=== PATIENT | male | born 1955 | race African-American/Black ===

== ENCOUNTER 2017-08-19 10:48 | Emergency (ER) | payer SELFPAY ==
--- NOTE | 2017-08-19 11:58 | RAD ---
PA AND LATERAL CHEST: Indication: Cough. Comparison: PA and lateral, 05-26-16 FINDINGS: The lungs are hyperinflated but clear. Vascular calcifications involving the aortic arch is similar. Cardiac silhouette is within normal limits. No acute osseous abnormality is evident. IMPRESSION: No acute cardiopulmonary abnormality. POS: [facility]
== END 2017-08-19 13:27 | disposition home or self-care (01) ==
LOC: ERS 10:48
DX: M54.5 Low back pain (principal); G89.29 Other chronic pain; J06.9 Acute upper respiratory infection, unspecified; F41.9 Anxiety disorder, unspecified; F32.9 Major depressive disorder, single episode, unspecified; Z87.891 Personal history of nicotine dependence
CPT/HCPCS: 71020

== ENCOUNTER 2017-10-17 12:09 | Emergency (ER) | payer SELFPAY ==
[2017-10-17] MEDS ORDERED: ISOVUE-370 76%-LOCM 1 ML ONE (13:26)
[2017-10-17] MEDS ORDERED: Ondansetron HCl/PF 4 MG/2 ML Vial ONE (13:52)
--- NOTE | 2017-10-17 15:35 | CT ---
CHEST CT SCAN WITH IV CONTRAST ABDOMEN AND PELVIC CT SCAN WITH IV CONTRAST: 10/17/17 HISTORY: 62-year-old male with history of trip and fall with left sided rib pain prior to admission. Dizziness . There is some bilateral hyperinflation and mild bullous emphysema changes. the mediastinum is unremar kable. No mediastinal hematoma. No evidence for aortic injury or aneurysm or dissection. No pneumotho rax or pleural effusion. There are some slight rib deformities bilaterally having more the appearance of old healed rib fractures, although the possibility of acute Greenstick type fractures with result ant mild deformity are considered possibilities as well. The left 10th anterior rib near the costocho ndral junction region has an associated linear lucency with probably a nondisplaced fracture. In the abdomen, liver, gallbladder, pancreas, spleen, and kidneys appear unremarkable. No renal hydro nephrosis. Normal appearing appendix. No significant free intraperitoneal fluid within the abdomen or pelvis. No evidence for retroperitoneal hematoma. IMPRESSION: Probable nondisplaced fracture involving the anterior left 10th rib near the costochondral junction. Several mild bilateral rib deformities having more the appearance of old fractures, although the poss ibility of acute nondisplaced Greenstick type fractures cannot be excluded. Minimal hyperinflation an d chronic lung change. No evidence for other significant acute posttraumatic process in the chest, ab domen or pelvis. POS: [facility]
== END 2017-10-17 15:03 | disposition home or self-care (01) ==
LOC: ERS 12:09
DX: S22.32XA Fracture of one rib, left side, initial encounter for closed fracture (principal); B20 Human immunodeficiency virus [HIV] disease; I10 Essential (primary) hypertension; F41.9 Anxiety disorder, unspecified; F32.9 Major depressive disorder, single episode, unspecified; W01.0XXA Fall on same level from slipping, tripping and stumbling without subsequent striking against object, initial encounter
CPT/HCPCS: 71260; 74177; 96374; 96375; J2270; J2405

== ENCOUNTER 2018-03-15 15:41 | Outpatient (CLI) | payer OTHER | END 2018-03-15 15:42 | disposition home or self-care (01) | LOC: BICRAD 15:41 | PROVIDERS: ATTEND Internal Medicine | DX: Z02.71 Encounter for disability determination (principal); M47.896 Other spondylosis, lumbar region; M16.0 Bilateral primary osteoarthritis of hip; I70.8 Atherosclerosis of other arteries | CPT/HCPCS: 72100 ==

== ENCOUNTER 2018-10-27 11:15 | Outpatient (CLI) | payer OTHER ==
--- NOTE | 2018-10-27 12:20 | RAD ---
PA AND LATERAL CHEST RADIOGRAPH: Date: 10-27-18 History: Cough for three weeks. Wheezing. Comparison: 04-27-18 FINDINGS: The lungs are hyperexpanded but clear. The cardiac silhouette and pulmonary vasculature are within normal limits. Osseous structures are int act. There has been no interval change from prior exam. IMPRESSION: 1. No acute cardiopulmonary process. 2. Stable hyperinflation of lungs. 3. Remote lower left sided rib fractures, stable from prior exam. POS: [facility]
== END 2018-10-27 11:16 | disposition home or self-care (01) ==
LOC: BICRAD 11:15
PROVIDERS: ATTEND Internal Medicine Infectious Disease
DX: R06.2 Wheezing (principal); R05 Cough; J98.11 Atelectasis; Z87.81 Personal history of (healed) traumatic fracture
CPT/HCPCS: 71046

== ENCOUNTER 2018-11-03 10:07 | Outpatient (CLI) | payer OTHER ==
--- NOTE | 2018-11-03 14:23 | MRI ---
MRI LUMBAR SPINE WITHOUT CONTRAST: Date: 11/03/18 COMPARISON: None. HISTORY: Low back pain. TECHNIQUE: Multiplanar, multisequence MR imaging of the lumbar spine is provided without contrast. FINDINGS: Mild heterogeneity of the bony marrow signal intensity is noted with no focal area of edematous churchill e noted on the STIR imaging. Assuming five lumbar-type vertebral bodies, conus medullaris terminates at the T12-L1 level. At T11-12, there is disc space narrowing, disc desiccation, and mild anterior osteophyte formation wi th no significant central canal or neural foraminal stenosis. T12-L1: Intervertebral disc height and signal intensity is within normal limits with no significant central canal or neural foraminal stenosis. L1-2: Intervertebral disc height and signal intensity within normal limits no significant central ca nal or neural foraminal stenosis. L2-3: Mild disc space narrowing and minimal disc bulge. Mild bilateral facet hypertrophy. No signifi cant central canal or neural foraminal stenosis. L3-4: Mild bilateral facet hypertrophy. Intervertebral disc height and signal intensity within barbara l limits with no significant central canal or neural foraminal stenosis. L4-5: There is mild bilateral facet hypertrophy. Intervertebral disc height and signal intensity is within normal limits with no significant central canal or neural foraminal stenosis. L5-S1: Disc space narrowing, disc desiccation, and mild disc bulge present. Mild central canal steno sis. No significant neural foraminal stenosis. Incidental note is made of a 5-6 mm hypointense focus within the gallbladder. Imaged retroperitoneal structures demonstrate no acute findings. IMPRESSION: 1. No significant central canal or neural foraminal stenosis within the lumbar spine. 2. Probable cholelithiasis, which could be better assessed via right upper quadrant ultrasound. Gall bladder polyp is an alternative consideration. POS: [facility]
== END 2018-11-03 10:08 | disposition home or self-care (01) ==
LOC: TBSIIMAG 10:07
PROVIDERS: ATTEND Neurological Surgery
DX: M47.16 Other spondylosis with myelopathy, lumbar region (principal); M54.5 Low back pain
CPT/HCPCS: 72148

== ENCOUNTER 2019-03-20 13:37 | Emergency (ER) | payer MEDICARE, OTHER ==
[~2019-03-20 13:37] MED LIST: ISOVUE-370 76%-LOCM 1 ML ONE
[2019-03-20 14:14] LABS: #Basophils 0.1 thou/uL (0.0-0.2); #Eosinphils 0.1 thou/uL (0.0-0.7); #Lymphocytes 1.6 thou/uL (1.20-3.40); #Monocytes 0.7 thou/uL (0.11-0.59); #Neutrophils 5.4 thou/uL (1.40-6.50); %Basophils 0.7 % (0.0-1.0); %Eosinophils 1.6 % (0.0-10.0); %Lymphocytes 20.2 % (21.0-51.0); %Monocytes 8.4 % (0.0-10.0); %Neutrophils 69.1 % (42.0-75.0); Hemoglobin 14.8 g/dL (14.0-18.0); Mean Corpuscular Hemoglobin 37.7 pg (27.0-31.0); Mean Platelet Volume 8.2 fL (7.4-10.4); Platelet Count 215 thou/uL (130-400); RBC Distribution Width 11.2 % (11.5-14.5); Red Blood Cell (RBC) Count 3.93 mill/uL (4.70-6.10); White Blood Cell (WBC) Count 7.7 thou/uL (4.8-10.8)
[2019-03-20 14:27] LABS: MDiff Complete? YES; Macrocytosis SLIGHT = 6-15 cells (100X) (0-5/hpf); Platelet Morphology Comment Appears Adequate
--- NOTE | 2019-03-20 14:38 | RAD ---
RADIOGRAPH CHEST 1 VIEW: DATE: 03/20/2019 HISTORY: 64-year-old male with chest pain FINDINGS: There is hyperinflation of the lungs, consistent with COPD. The thoracic aorta is tortuous and ectati c. There is no evidence of airspace density, pulmonary edema, cardiomegaly or pneumothorax. The lateral costophrenic angles are not effaced. IMPRESSION: 1) No acute cardiopulmonary findings. 2) emphysema. 3) ectasia of thoracic aorta.
[2019-03-20 14:41] LABS: ALT (SGPT) 24 U/L (8-55); AST (SGOT) 27 U/L (5-34); Albumin 4.4 g/dL (3.4-4.8); Alkaline Phosphatase 43 U/L (40-150); Anion Gap 12 mmol/L (10-20); BUN (Urea Nitrogen) 7 mg/dL (8.4-25.7); Bilirubin, Total 1.4 mg/dL (0.2-1.2); CK (CPK) 132 U/L (30-200); Calc. Creatinine Clearance 0 mL/min (70-130); Calcium 9.3 mg/dL (7.8-10.44); Carbon Dioxide 25 mmol/L (23-31); Chloride 101 mmol/L (98-107); Estimated GFR-MDRD 74; Globulin 3.4 g/dL (2.4-3.5); Glucose 88 mg/dL (80-115); Lipase 12 U/L (8-78); Potassium 4.1 mmol/L (3.5-5.1); Protein, Total 7.8 g/dL (5.8-8.1); Sodium 134 mmol/L (136-145)
[2019-03-20] MEDS ORDERED: Morphine 4 MG/ML VIAL ONE (16:05)
[2019-03-20] MEDS ORDERED: Ondansetron PF 4 MG/2 ML Vial ONE (16:05)
--- NOTE | 2019-03-20 16:56 | CT ---
Exam: CT angiogram of the thoracic aorta CT angiogram of the abdominal aorta History: Worsening back pain. Evaluate for dissection. COMPARISON: None TECHNIQUE: CT angiogram of the thoracic and abdominal aorta performed in the axial plane. Three-dimen sional reformatted images are submitted for interpretation. FINDINGS: Chest CT: No mediastinal mass, lymphadenopathy or hematoma. Heart size is within normal limits. There are coronary calcifications. Extensive emphysematous changes involving the lung parenchyma, greatest in both upper lobes. No suspi cious masses or consolidation in either lung. No pleural effusion. Pneumothorax. Abdomen CT: Appropriate arterial phase enhancement of the solid organs. No gastrohepatic, retrocrural or periportal lymphadenopathy. No mesenteric mass, lymphadenopathy, hermila e air or free fluid. Symmetric enhancement of the kidneys. No obstructive uropathy. Visualized alimentary canal is unremarkable. Incidental upper normal caliber of the pancreatic duct measuring approximately 2 to 3 mm. Unremarkabl e gallbladder. No lytic or blastic lesions in the osseous structures. CT ANGIOGRAM: The aortic root, ascending thoracic aorta, aortic arch, descending thoracic aorta, abdo tatianna aorta and aortic bifurcation have appropriate enhancement and luminal diameter. There is appropriate enhancement and luminal diameter with regards to the origin of the cervical carotid and v ertebral arteries as well as proximal subclavian arteries. There is appropriate enhancement and luminal diameter with regards to the celiac artery, superior mesenteric artery, inferior mesenteric a rtery and bilateral renal arteries. Single right renal artery and single left renal artery. Aortic bifurcation and visualized iliac arteries are under IMPRESSION: 1. No evidence of aneurysm or dissection with regards to the visualized thoracic and abdominal aorta. 2. Emphysematous changes of the lung parenchyma without suspicious masses or consolidation. Transcribed Date/Time: 03/20/2019 5:09 PM
[2019-03-20 19:04] LABS: Troponin I Less than 0.010 ng/mL (< 0.028)
== END 2019-03-20 19:30 | disposition home or self-care (01) ==
LOC: ERS 13:37
DX: M54.6 Pain in thoracic spine (principal)
CPT/HCPCS: 36415; 71045; 71275; 80053; 82550; 83690; 84484; 85025; 93005; 94760; 96361; 96374; 96375; J2270; J2405; Q9966

== ENCOUNTER 2019-04-26 10:55 | Outpatient (CLI) | payer MEDICARE, OTHER ==
--- NOTE | 2019-04-26 11:09 | RAD ---
EXAM: Chest 2 views: HISTORY: Cough COMPARISON: 10/27/2018 FINDINGS: There is a normal-sized cardiomediastinal silhouette. There is no evidence of consolidation, mass, or pleural effusion. The bones are unremarkable. IMPRESSION: No evidence of acute cardiopulmonary disease
== END 2019-04-26 10:56 | disposition home or self-care (01) ==
LOC: BICRAD 10:55
PROVIDERS: ATTEND Internal Medicine Infectious Disease
DX: R05 Cough (principal)
CPT/HCPCS: 71046

== ENCOUNTER 2020-01-09 15:53 | Emergency (ER) | payer MEDICARE, OTHER ==
[2020-01-09] MEDS ORDERED: Ketorolac Tromethamine 30 MG/ML VIAL ONE ×2 (16:49→16:53)
[2020-01-09] MEDS ORDERED: Dexamethasone 4 mg/ml Vial ONE (16:49)
--- NOTE | 2020-01-09 17:45 | RAD ---
LUMBAR SPINE RADIOGRAPHS THREE VIEWS: Date: 01-09-2020 Provided Clinical History: Chronic back pain. FINDINGS: Comparison 11-12-04. Five non-rib bearing lumbar vertebral bodies are demonstrated. Lumbar alignment appears normal. Verte bral body heights appear preserved. Pedicles appear intact. Sacral iliac joints appear symmetric. Vas cular calcifications are seen. Mild lower lumbar facet arthritis. IMPRESSION: Mild lower lumbar facet arthritis. POS: [facility]
== END 2020-01-09 18:05 | disposition home or self-care (01) ==
LOC: ERS 15:53
DX: M54.5 Low back pain (principal); G89.29 Other chronic pain; E78.5 Hyperlipidemia, unspecified; I10 Essential (primary) hypertension; J45.909 Unspecified asthma, uncomplicated; B20 Human immunodeficiency virus [HIV] disease
CPT/HCPCS: 72100; 96372; J1100; J1885

== ENCOUNTER 2020-08-21 15:21 | Outpatient (CLI) | payer MEDICARE, OTHER ==
--- NOTE | 2020-08-21 15:54 | ULT ---
ULTRASOUND ABDOMEN COMPLETE: DATE: 08/21/2020 HISTORY: 65-year-old male for screening for abdominal aortic aneurysm. FINDINGS: Gallbladder: Single small 6 mm mobile gallstone. Normal wall thickness. No sludge identified. No carolann cholecystic fluid. Liver: Normal parenchymal echogenicity. Bilateral kidneys: No hydronephrosis. Pancreas: Nonspecific sonographic appearance. Common duct caliber: 3 mm. Abdominal aorta: No aneurysm Inferior vena cava: Unremarkable where visualized. Spleen: No splenomegaly IMPRESSION: 1. Cholelithiasis consisting of a single small mobile gallstone. 2. Otherwise negative.
== END 2020-08-21 15:22 | disposition home or self-care (01) ==
LOC: BICULT 15:21
PROVIDERS: ATTEND Student in an Organized Health Care Education/Training Program
DX: Z87.891 Personal history of nicotine dependence (principal); K80.20 Calculus of gallbladder without cholecystitis without obstruction
CPT/HCPCS: 93975

== ENCOUNTER 2020-11-22 11:38 | Observation (INO) | payer MEDICARE, MEDICAID ==
[~2020-11-22 11:38] MED LIST changes: -ISOVUE-370 76%-LOCM 1 ML ONE; +Iopamidol 370 76% 100 ML VIAL ONE
[2020-11-22 12:13] LABS: #Basophils 0.1 thou/uL (0.0-0.2); #Eosinphils 0.1 thou/uL (0.0-0.7); #Lymphocytes 1.1 thou/uL (1.20-3.40); #Monocytes 0.6 thou/uL (0.11-0.59); #Neutrophils 8.3 thou/uL (1.40-6.50); %Basophils 0.8 % (0.0-1.0); %Eosinophils 0.5 % (0.0-10.0); %Lymphocytes 10.5 % (21.0-51.0); %Monocytes 5.4 % (0.0-10.0); %Neutrophils 82.8 % (42.0-75.0); Hemoglobin 14.5 g/dL (14.0-18.0); Mean Corpuscular HGB CONC 33.6 g/dL (32.0-36.0); Mean Platelet Volume 8.6 fL (7.4-10.4); Platelet Count 183 thou/uL (130-400); RBC Distribution Width 11.2 % (11.5-14.5); Red Blood Cell (RBC) Count 3.83 mill/uL (4.70-6.10); White Blood Cell (WBC) Count 10.1 thou/uL (4.8-10.8)
[2020-11-22 12:33] LABS: ALT (SGPT) 35 U/L (8-55); AST (SGOT) 42 U/L (5-34); Albumin 3.9 g/dL (3.4-4.8); Alkaline Phosphatase 54 U/L (40-110); Anion Gap 15 mmol/L (10-20); BUN (Urea Nitrogen) 13 mg/dL (8.4-25.7); Bilirubin, Total 0.9 mg/dL (0.2-1.2); Calc. Creatinine Clearance 0 mL/min (70-130); Carbon Dioxide 22 mmol/L (23-31); Chloride 101 mmol/L (98-107); Globulin 3.7 g/dL (2.4-3.5); Glucose 119 mg/dL (80-115); Lipase 19 U/L (8-78); Potassium 4.3 mmol/L (3.5-5.1); Protein, Total 7.6 g/dL (5.8-8.1); Sodium 134 mmol/L (136-145)
[2020-11-22 12:39] LABS: MDiff Complete? YES; Macrocytosis SLIGHT = 6-15 cells (100X) (0-5/hpf); Platelet Morphology Comment Appears Adequate; Polychromasia SLIGHT = 2-3 cells (100X) (0-2/hpf)
[2020-11-22] MEDS ORDERED: Ibuprofen 600 MG TAB PO PRN (15:16)
[2020-11-22 15:38] LABS: Troponin I 0.014 ng/mL (< 0.028)
[2020-11-22] MEDS ORDERED: Lactated Ringer's 1,000 ML IV SCH (15:45)
[2020-11-22 16:02] LABS: Hemoglobin A1c 4.3 % (4.0-6.0)
[2020-11-22 16:14] LABS: Cardiac Risk 2.3 (Less than 4.5)
[2020-11-22 17:31] LABS: SARS-CoV-2 NAA Rapid Test Not Detected (NotDetected)
[2020-11-22] MEDS ORDERED: Ipratropium Oral Inhaler INH PRN (17:34)
[2020-11-22] MEDS ORDERED: Morphine 2 MG/ML VIAL SLOW IVP PRN (17:41)
[2020-11-22] MEDS: Acetaminophen 325 MG TAB PO PRN (17:46)
[2020-11-22] MEDS: Cyclobenzaprine 10 MG TAB PO PRN ×2 (17:48→20:31)
[2020-11-22 19:02] LABS: Troponin I 0.015 ng/mL (< 0.028)
[2020-11-22 19:17] VITALS: BMI 19.2
[2020-11-22 19:47] LABS: Amphetamine Not Detected (NotDetected); Barbiturates Screen Not Detected (NotDetected); Benzodiazepine Screen Not Detected (NotDetected); Cocaine Metabolite Screen Not Detected (NotDetected); Medtox Control Line Valid? VALID (VALID); Medtox Reader # READER 1; Methadone Not Detected (NotDetected); Methamphetamine Not Detected (NotDetected); Opiate Screen Not Detected (NotDetected); Oxycodone Screen Not Detected (NotDetected); Phencyclidine (PCP) Not Detected (NotDetected); THC/Cannabinoid Screen Not Detected (NotDetected); Tricyclic Screen Not Detected (NotDetected)
[2020-11-22] MEDS: Lactated Ringer's 1,000 ML IV SCH (20:07)
[2020-11-22] MEDS ORDERED: Transdermal Patch Removal TOP SCH (21:00)
[2020-11-22] MEDS ORDERED: Atorvastatin Calcium 40 MG TAB PO SCH (21:00)
[2020-11-23] MEDS: Lactated Ringer's 1,000 ML IV SCH ×3 (05:35→12:52)
[2020-11-23] MEDS ORDERED: Lidocaine 5% Patch TD SCH (09:00)
[2020-11-23] MEDS ORDERED: Aspirin 81 mg Enteric Coated Tablet PO SCH (09:00)
[2020-11-23] MEDS ORDERED: Enoxaparin Sodium 40 MG/0.4 ML SYRINGE SC SCH (09:00)
[2020-11-23] MEDS ORDERED: FLU VACC QS2020-21(65YR UP)/PF 240 MCG/0.7 ML SYRINGE IM ONE (09:00)
[2020-11-23] MEDS ORDERED: Regadenoson 0.4 MG/5 ML SYRINGE ONE (10:38)
[2020-11-23] MEDS: Acetaminophen 325 MG TAB PO PRN (10:57)
[2020-11-23] MEDS: Cyclobenzaprine 10 MG TAB PO PRN (12:20)
[2020-11-23 15:14] VITALS: BP 151/94; TEMP 98
[2020-11-23 16:14] LABS: %CD4 (Helper/Inducer) 54.6 % (30.8-58.5); Absolute CD4 601 /uL (359-1519); Lymphocytes/Gated Cell Count 1.1 x10E3/uL (0.7-3.1); Total Lymphocyte 13 % (Not Estab.); WBC Total Count 8.7 x10E3/uL (3.4-10.8)
== END 2020-11-23 17:55 | disposition left against medical advice (07) ==
LOC: ERS 11:38 → 2SW 14:18
PROVIDERS: ADMIT Family Medicine; ATTEND Family Medicine
DX: R07.89 Other chest pain (principal); M54.5 Low back pain; I10 Essential (primary) hypertension; E78.5 Hyperlipidemia, unspecified; I69.354 Hemiplegia and hemiparesis following cerebral infarction affecting left non-dominant side; K80.20 Calculus of gallbladder without cholecystitis without obstruction; E86.0 Dehydration; Z53.29 Procedure and treatment not carried out because of patient's decision for other reasons; Z21 Asymptomatic human immunodeficiency virus [HIV] infection status; Z87.891 Personal history of nicotine dependence; Z23 Encounter for immunization; Z79.899 Other long term (current) drug therapy; Z20.822 Contact with and (suspected) exposure to COVID-19
CPT/HCPCS: 0240U; 71045; 71275; 78452; 80061; 80306; 83036; 83690; 84484 ×2; 85048; 85379; 86361; 90662; 90732; 93005; 93017; 93306; 94760; 96372; 96374; 97139 ×4; 99285; A9500; G0008; G0009; G0378 ×3; J2270; 36415; 36416; 80053; 84443; 85025; 90471; J1650; J2785; Q9967

== ENCOUNTER 2021-06-27 13:01 | Outpatient (CLI) | payer MEDICARE, MEDICAID | END 2021-06-27 13:02 | disposition home or self-care (01) | LOC: BICRAD 13:01 | PROVIDERS: ATTEND Nurse Practitioner Family | DX: R06.02 Shortness of breath (principal); B20 Human immunodeficiency virus [HIV] disease | CPT/HCPCS: 71046 ==

== ENCOUNTER 2021-07-16 07:37 | Emergency (ER) | payer MEDICARE, MEDICAID ==
[2021-07-16] MEDS ORDERED: Morphine 4 MG/ML VIAL ONE (08:29)
[2021-07-16] MEDS ORDERED: Ondansetron PF 4 MG/2 ML Vial ONE (08:29)
[2021-07-16 09:06] LABS: ALT (SGPT) 34 U/L (8-55); AST (SGOT) 40 U/L (5-34); Albumin 4.2 g/dL (3.4-4.8); Alkaline Phosphatase 61 U/L (40-110); Anion Gap 15 mmol/L (10-20); BUN (Urea Nitrogen) 10 mg/dL (8.4-25.7); Bilirubin, Total 0.7 mg/dL (0.2-1.2); Calc. Creatinine Clearance 0 mL/min (70-130); Calcium 9.8 mg/dL (7.8-10.44); Carbon Dioxide 23 mmol/L (23-31); Chloride 102 mmol/L (98-107); Globulin 4.1 g/dL (2.4-3.5); Glucose 104 mg/dL (80-115); Lipase 20 U/L (8-78); Potassium 4.6 mmol/L (3.5-5.1); Protein, Total 8.3 g/dL (5.8-8.1); Sodium 135 mmol/L (136-145)
[2021-07-16 09:08] LABS: #Eosinphils 0.1 thou/uL (0.0-0.7); #Lymphocytes 1.1 thou/uL (1.20-3.40); #Monocytes 0.8 thou/uL (0.11-0.59); #Neutrophils 5.7 thou/uL (1.40-6.50); %Basophils 0.1 % (0.0-1.0); %Eosinophils 1.6 % (0.0-10.0); %Lymphocytes 14.6 % (21.0-51.0); %Monocytes 10.3 % (0.0-10.0); %Neutrophils 73.4 % (42.0-75.0); Hemoglobin 15.8 g/dL (14.0-18.0); Mean Corpuscular HGB CONC 33.2 g/dL (32.0-36.0); Mean Corpuscular Hemoglobin 37.4 pg (27.0-31.0); Mean Platelet Volume 8.9 fL (7.4-10.4); Platelet Count 182 thou/uL (130-400); RBC Distribution Width 11.1 % (11.5-14.5); Red Blood Cell (RBC) Count 4.21 mill/uL (4.70-6.10); White Blood Cell (WBC) Count 7.8 thou/uL (4.8-10.8)
[2021-07-16 09:28] LABS: MDiff Complete? YES; Macrocytosis MODERATE=16-30 cells (100X) (0-5/hpf); Platelet Morphology Comment Appears Adequate; Polychromasia SLIGHT = 2-3 cells (100X) (0-2/hpf)
[2021-07-16] MEDS ORDERED: Iopamidol-370 76% 500 ML 1 ML ONE (10:27)
== END 2021-07-16 10:16 | disposition home or self-care (01) ==
LOC: ERS 07:37
DX: S30.1XXA Contusion of abdominal wall, initial encounter (principal); M25.559 Pain in unspecified hip; E78.5 Hyperlipidemia, unspecified; I10 Essential (primary) hypertension; J45.909 Unspecified asthma, uncomplicated; W19.XXXA Unspecified fall, initial encounter
CPT/HCPCS: 36415; 74177; 80053; 83690; 85025; 86850; 86900; 86901; 96374; 96375; J2270; J2405; Q9967

== ENCOUNTER 2021-09-18 13:29 | Outpatient (CLI) | payer MEDICARE, MEDICAID | END 2021-09-18 13:30 | disposition home or self-care (01) | LOC: BICMRI 13:29 | PROVIDERS: ATTEND Student in an Organized Health Care Education/Training Program | DX: M54.50 Low back pain, unspecified (principal); M54.6 Pain in thoracic spine; M51.26 Other intervertebral disc displacement, lumbar region; M48.061 Spinal stenosis, lumbar region without neurogenic claudication; M47.814 Spondylosis without myelopathy or radiculopathy, thoracic region | CPT/HCPCS: 72146; 72148 ==

== ENCOUNTER 2021-09-27 10:08 | Outpatient (CLI) | payer MEDICARE, MEDICAID ==
[2021-09-27 12:06] LABS: #Basophils 0.1 10x3/uL (0.0-0.2); #Eosinphils 0.1 10x3/uL (0.0-0.5); #Monocytes 0.8 10x3/uL (0.0-1.1); #Neutrophils 6.2 10x3/uL (1.5-8.4); %Basophils 0.6 % (0.0-2.0); %Eosinophils 1.4 % (0.0-6.0); %Lymphocytes 18.1 % (18.0-47.0); %Monocytes 8.7 % (0.0-10.0); Anisocytosis SLIGHT = 6-15 cells (100X) (0-5/hpf); Hemoglobin 15.2 g/dL (13.5-17.5); Macrocytosis MODERATE=16-30 cells (100X) (0-5/hpf); Mean Corpuscular HGB CONC 33.3 g/dL (32.0-36.0); Mean Corpuscular Hemoglobin 36.1 pg (27.0-33.0); Mean Corpuscular Volume 108.6 fl (81.2-95.1); Mean Platelet Volume 11.5 fl (7.4-10.4); Platelet Count 198 10x3/uL (150-450); RBC Distribution Width 11.1 % (11.5-14.5); Red Blood Cell (RBC) Count 4.21 10x6/uL (4.32-5.72); White Blood Cell (WBC) Count 8.8 10x3/uL (3.5-10.5)
[2021-09-27 12:07] LABS: Large Platelets MODERATE; Platelet Clumps SLIGHT; Platelet Morphology Comment Appears Adequate
[2021-09-27 12:14] LABS: ALT (SGPT) 56 U/L (8-55); AST (SGOT) 53 U/L (5-34); Albumin 4.3 g/dL (3.4-4.8); Alkaline Phosphatase 70 U/L (40-110); Anion Gap 18 mmol/L (10-20); BUN (Urea Nitrogen) 9 mg/dL (8.4-25.7); Bilirubin, Total 1.3 mg/dL (0.2-1.2); Calc. Creatinine Clearance 0 mL/min (70-130); Calcium 9.5 mg/dL (7.8-10.44); Carbon Dioxide 26 mmol/L (23-31); Chloride 99 mmol/L (98-107); Globulin 3.8 g/dL (2.4-3.5); Glucose 86 mg/dL (80-115); Potassium 4.5 mmol/L (3.5-5.1); Protein, Total 8.1 g/dL (5.8-8.1); Sodium 138 mmol/L (136-145)
[2021-09-28 12:54] LABS: SARS-CoV-2 PCR by NAA Not Detected (NotDetected)
== END 2021-09-27 10:09 | disposition home or self-care (01) ==
LOC: LABBT 10:08
PROVIDERS: ATTEND Internal Medicine Cardiovascular Disease
DX: Z01.812 Encounter for preprocedural laboratory examination (principal); R07.9 Chest pain, unspecified; Z20.822 Contact with and (suspected) exposure to COVID-19
CPT/HCPCS: 80053; 85025; U0003; U0005

== ENCOUNTER 2022-09-10 11:15 | Outpatient (CLI) | payer MEDICARE, OTHER | END 2022-09-10 11:16 | disposition home or self-care (01) | LOC: BICRAD 11:15 | PROVIDERS: ATTEND Student in an Organized Health Care Education/Training Program | DX: J44.9 Chronic obstructive pulmonary disease, unspecified (principal) | CPT/HCPCS: 71046 ==

== ENCOUNTER 2022-12-31 08:41 | Outpatient (CLI) | payer OTHER | END 2022-12-31 08:42 | disposition home or self-care (01) | LOC: RAD 08:41 | PROVIDERS: ATTEND Internal Medicine Critical Care Medicine | DX: R06.00 Dyspnea, unspecified (principal) | CPT/HCPCS: 71046 ==

== ENCOUNTER 2023-03-21 03:26 | Inpatient (IN) | payer OTHER, MEDICAID ==
[2023-03-21] MEDS ORDERED: Albuterol 2.5 MG/0.5 ML NEB ONE (03:35)
[2023-03-21 03:52] LABS: Actual Bicarbonate (HCO3a) 25.9 mEq/L (22-28); Base Excess (BEa) -0.6 mEq/L (-2.0 to +3.0); CO2 Tension 50.2 mmHg (35.0-45.0); Calcium, Ionized (arterial) 1.15 mmol/L (1.12-1.30); Carboxyhemoglobin (COHb) 1.2 gm% (0.0-3.0); Hematocrit-ABG 38 % (42.0-52.0); O2 Tension (PaO2), arterial 144.2 mmHg (> 80.0); pH, Arterial 7.331 (7.35-7.45)
[2023-03-21 03:53] LABS: Puncture Site RRA
[2023-03-21 03:55] LABS: Hemoglobin 12.5 g/dL (14.0-18.0); Mean Corpuscular HGB CONC 33.4 g/dL (32.0-36.0); Mean Corpuscular Hemoglobin 37.3 pg (27.0-31.0); Mean Corpuscular Volume 111.6 fl (78.0-98.0); Mean Platelet Volume 10.9 fL (7.4-10.4); Platelet Count 179 10x3/uL (130-400); RBC Distribution Width 11.7 % (11.5-14.5); Red Blood Cell (RBC) Count 3.35 mill/uL (4.70-6.10); White Blood Cell (WBC) Count 17.1 10x3/uL (4.8-10.8)
[2023-03-21 04:00] LABS: Delete Auto Diff?? YES; Manual Diff?? YES
[2023-03-21 04:20] LABS: ALT (SGPT) 23 U/L (8-55); AST (SGOT) 41 U/L (5-34); Albumin 4.1 g/dL (3.4-4.8); Alkaline Phosphatase 53 U/L (40-110); Anion Gap 13 mmol/L (10-20); BUN (Urea Nitrogen) 12 mg/dL (8.4-25.7); Bilirubin, Total 0.8 mg/dL (0.2-1.2); Calc. Creatinine Clearance 0 mL/min (70-130); Calcium 8.9 mg/dL (7.8-10.44); Carbon Dioxide 26 mmol/L (23-31); Chloride 100 mmol/L (98-107); Estimated GFR 87; Globulin 3.3 g/dL (2.4-3.5); Glucose 125 mg/dL (80-115); Potassium 4.5 mmol/L (3.5-5.1); Protein, Total 7.4 g/dL (5.8-8.1); Sodium 134 mmol/L (136-145)
[2023-03-21 04:26] LABS: Anisocytosis SLIGHT = 6-15 cells HPF (0-5); CellaVision Operator ID LAB.CLH1; Lymphocytes 11 % (21-51); Macrocytosis SLIGHT = 6-15 cells HPF (0-5); Monocytes 3 % (0-10); Neutrophil 86 % (42-75); Platelet Adequacy Comment Platelets Normal; Total Cell Count 101
[2023-03-21] MEDS ORDERED: Piperacillin/Tazobactam 3.375 GM VIAL ONE (04:49)
[2023-03-21] MEDS ORDERED: Ipratropium/Albuterol 3 ML NEB NEB PRN (06:45)
[2023-03-21] MEDS: Ipratropium/Albuterol 3 ML NEB NEB SCH ×5 (08:35→22:58)
[2023-03-21] MEDS ORDERED: Electrolyte Replacement Protocol 1 EACH FS SCH (10:45)
[2023-03-21] MEDS ORDERED: Azithromycin 250 MG TAB PO SCH (11:00)
[2023-03-21] MEDS ORDERED: Electrolyte Replacement Protocol FS PRN (11:30)
[2023-03-21] MEDS ORDERED: Magnesium Sulfate In Water 4 GM in Premix Bag 1 BAG IVPB SCH (12:00)
[2023-03-21] MEDS ORDERED: Furosemide 20 MG/2 ML VIAL SLOW IVP SCH (12:15)
[2023-03-21] MEDS: methylPREDNISolone Sod Succ 40 MG VIAL IVP SCH ×3 (12:41→23:53)
[2023-03-21] MEDS: Ipratropium Bromide 2.5 ml Neb NEB SCH ×2 (13:22→18:28)
[2023-03-21] MEDS: Gabapentin 300 MG CAP PO SCH ×2 (15:44→20:17)
[2023-03-21] MEDS ORDERED: BIKTARVY 50-200-25 MG TABLET PO SCH (17:00)
[2023-03-21] MEDS: Guaifenesin DM 100-10/5 ML UDCUP PO PRN (18:49)
[2023-03-21] MEDS: Atorvastatin Calcium 40 MG TAB PO SCH (20:17)
[2023-03-22] MEDS: Ipratropium/Albuterol 3 ML NEB NEB SCH ×6 (02:05→23:17)
[2023-03-22] MEDS: Ipratropium Bromide 2.5 ml Neb NEB SCH ×3 (02:06→10:30)
[2023-03-22 04:20] LABS: #Monocytes 0.4 thou/uL (0.11-0.59); #Neutrophils 10.3 thou/uL (1.40-6.50); %Lymphocytes 4.3 % (21.0-51.0); %Monocytes 3.7 % (0.0-10.0); %Neutrophils 91.4 % (42.0-75.0); Hemoglobin 11.5 g/dL (14.0-18.0); Mean Corpuscular HGB CONC 33.7 g/dL (32.0-36.0); Mean Corpuscular Hemoglobin 37.6 pg (27.0-31.0); Platelet Count 142 10x3/uL (130-400); RBC Distribution Width 11.5 % (11.5-14.5); Red Blood Cell (RBC) Count 3.06 mill/uL (4.70-6.10); White Blood Cell (WBC) Count 11.3 10x3/uL (4.8-10.8)
[2023-03-22 04:27] LABS: Mean Corpuscular Volume 111.4 fl (78.0-98.0)
[2023-03-22 04:43] LABS: Anion Gap 12 mmol/L (10-20); BUN (Urea Nitrogen) 11 mg/dL (8.4-25.7); Calc. Creatinine Clearance 78 mL/min (70-130); Calcium 8.7 mg/dL (7.8-10.44); Carbon Dioxide 26 mmol/L (23-31); Chloride 102 mmol/L (98-107); Estimated GFR 92; Glucose 143 mg/dL (80-115); Potassium 4.3 mmol/L (3.5-5.1); Sodium 136 mmol/L (136-145)
[2023-03-22] MEDS: methylPREDNISolone Sod Succ 40 MG VIAL IVP SCH ×4 (05:46→23:38)
[2023-03-22] MEDS: Folic Acid 1 MG TAB PO SCH (07:51)
[2023-03-22] MEDS: Azithromycin 250 MG TAB PO SCH (07:51)
[2023-03-22] MEDS: Gabapentin 300 MG CAP PO SCH ×3 (07:51→20:16)
[2023-03-22] MEDS: BIKTARVY 50-200-25 MG TABLET PO SCH (07:51)
[2023-03-22] MEDS: Multivit, Therapeutic 1 TAB PO SCH (07:51)
[2023-03-22] MEDS ORDERED: predniSONE 20 MG TAB PO SCH (08:00)
[2023-03-22] MEDS ORDERED: Sacubitril 24MG/Valsartan 26 MG TAB PO SCH (09:00)
[2023-03-22] MEDS ORDERED: Docusate 100 MG CAP PO PRN (13:13)
[2023-03-22] MEDS: Acetaminophen 325 MG TAB PO PRN (17:25)
[2023-03-22] MEDS: Sacubitril 24MG/Valsartan 26 MG TAB PO SCH (20:16)
[2023-03-22] MEDS: Atorvastatin Calcium 40 MG TAB PO SCH (20:16)
[2023-03-23] MEDS: Ipratropium/Albuterol 3 ML NEB NEB SCH ×6 (02:28→22:29)
[2023-03-23] MEDS: methylPREDNISolone Sod Succ 40 MG VIAL IVP SCH ×4 (05:53→23:41)
[2023-03-23 08:18] LABS: Hemoglobin 12.8 g/dL (14.0-18.0); Mean Corpuscular Hemoglobin 37.8 pg (27.0-31.0); Mean Corpuscular Volume 114.5 fl (78.0-98.0); Mean Platelet Volume 11.2 fL (7.4-10.4); Platelet Count 164 10x3/uL (130-400); RBC Distribution Width 11.4 % (11.5-14.5); Red Blood Cell (RBC) Count 3.39 mill/uL (4.70-6.10); White Blood Cell (WBC) Count 13.7 10x3/uL (4.8-10.8)
[2023-03-23 08:23] LABS: Delete Auto Diff?? YES; Manual Diff?? YES
[2023-03-23 08:42] LABS: CellaVision Operator ID LAB.GE; Hypersegmented Neutrophil SLIGHT (None Seen); Large Platelets 6.9 % (0-5); Lymphocytes 3 % (21-51); Macrocytosis MODERATE=16-30 cells HPF (0-5); Monocytes 2 % (0-10); Neutrophil 94 % (42-75); Platelet Adequacy Comment Platelets Normal; Polychromasia SLIGHT = 2-3 cells HPF (0-2); Reactive Lymphocytes 1 % (0-10); Total Cell Count 101
[2023-03-23 08:47] LABS: Anion Gap 15 mmol/L (10-20); BUN (Urea Nitrogen) 14 mg/dL (8.4-25.7); Calc. Creatinine Clearance 65 mL/min (70-130); Calcium 9.1 mg/dL (7.8-10.44); Carbon Dioxide 23 mmol/L (23-31); Chloride 102 mmol/L (98-107); Estimated GFR 76; Glucose 141 mg/dL (80-115); Potassium 4.4 mmol/L (3.5-5.1); Sodium 136 mmol/L (136-145)
[2023-03-23] MEDS: Azithromycin 250 MG TAB PO SCH (08:50)
[2023-03-23] MEDS: Sacubitril 24MG/Valsartan 26 MG TAB PO SCH ×2 (08:50→20:32)
[2023-03-23] MEDS: Multivit, Therapeutic 1 TAB PO SCH (08:50)
[2023-03-23] MEDS: Gabapentin 300 MG CAP PO SCH ×3 (08:50→20:32)
[2023-03-23] MEDS: Folic Acid 1 MG TAB PO SCH (08:51)
[2023-03-23] MEDS: Acetaminophen 325 MG TAB PO PRN ×3 (08:51→20:36)
[2023-03-23] MEDS: BIKTARVY 50-200-25 MG TABLET PO SCH (08:55)
[2023-03-23 12:15] VITALS: BMI 20.3
[2023-03-23] MEDS: Atorvastatin Calcium 40 MG TAB PO SCH (20:32)
[2023-03-24] MEDS: Guaifenesin DM 100-10/5 ML UDCUP PO PRN (00:55)
[2023-03-24 01:18] VITALS: TEMP 97.9
[2023-03-24] MEDS: Ipratropium/Albuterol 3 ML NEB NEB SCH ×3 (02:03→12:25)
[2023-03-24 06:49] LABS: #Neutrophils 10.9 thou/uL (1.40-6.50); %Basophils 0.1 % (0.0-1.0); %Monocytes 7.7 % (0.0-10.0); %Neutrophils 81.6 % (42.0-75.0); Hemoglobin 12.8 g/dL (14.0-18.0); Mean Corpuscular HGB CONC 33.8 g/dL (32.0-36.0); Mean Corpuscular Hemoglobin 37.2 pg (27.0-31.0); Mean Platelet Volume 10.9 fL (7.4-10.4); Platelet Count 175 10x3/uL (130-400); RBC Distribution Width 11.2 % (11.5-14.5); Red Blood Cell (RBC) Count 3.44 mill/uL (4.70-6.10); White Blood Cell (WBC) Count 13.3 10x3/uL (4.8-10.8)
[2023-03-24 07:18] LABS: Anion Gap 11 mmol/L (10-20); BUN (Urea Nitrogen) 15 mg/dL (8.4-25.7); Calc. Creatinine Clearance 68 mL/min (70-130); Calcium 9.1 mg/dL (7.8-10.44); Carbon Dioxide 27 mmol/L (23-31); Chloride 103 mmol/L (98-107); Estimated GFR 81; Glucose 106 mg/dL (80-115); Potassium 3.7 mmol/L (3.5-5.1); Sodium 137 mmol/L (136-145)
[2023-03-24 07:29] LABS: Mean Corpuscular Volume 110.2 fl (78.0-98.0)
[2023-03-24] MEDS ORDERED: predniSONE 20 MG TAB PO SCH (08:00)
[2023-03-24 08:04] VITALS: BP 137/83
[2023-03-24] MEDS: Gabapentin 300 MG CAP PO SCH ×2 (08:42→14:37)
[2023-03-24] MEDS: Folic Acid 1 MG TAB PO SCH (08:42)
[2023-03-24] MEDS: Sacubitril 24MG/Valsartan 26 MG TAB PO SCH (08:42)
[2023-03-24] MEDS: Multivit, Therapeutic 1 TAB PO SCH (08:42)
[2023-03-24] MEDS: BIKTARVY 50-200-25 MG TABLET PO SCH (08:43)
[2023-03-24] MEDS ORDERED: Thiamine 100 MG TAB PO SCH (12:00)
[2023-03-24] MEDS: Acetaminophen 325 MG TAB PO PRN (14:37)
== END 2023-03-24 16:27 | disposition home or self-care (01) | DRG 189 ==
LOC: ERS 03:26 → IMCU/EMU 06:30 → T4-A 03-23 16:34
PROVIDERS: ADMIT Student in an Organized Health Care Education/Training Program; ATTEND Student in an Organized Health Care Education/Training Program
PROC: 4A033R1 Measurement of Arterial Saturation, Peripheral, Percutaneous Approach (ICD-10-PCS; principal; 2023-03-21)
PROC: 5A09357 Assistance with Respiratory Ventilation, Less than 24 Consecutive Hours, Continuous Positive Airway Pressure (ICD-10-PCS; 2023-03-21)
DX: J96.01 Acute respiratory failure with hypoxia (principal); E43 Unspecified severe protein-calorie malnutrition; J18.9 Pneumonia, unspecified organism; I50.22 Chronic systolic (congestive) heart failure; J44.1 Chronic obstructive pulmonary disease with (acute) exacerbation; J44.0 Chronic obstructive pulmonary disease with (acute) lower respiratory infection; L02.91 Cutaneous abscess, unspecified; J96.02 Acute respiratory failure with hypercapnia; Z21 Asymptomatic human immunodeficiency virus [HIV] infection status; M54.50 Low back pain, unspecified; F10.10 Alcohol abuse, uncomplicated; E78.5 Hyperlipidemia, unspecified; G89.29 Other chronic pain; I25.10 Atherosclerotic heart disease of native coronary artery without angina pectoris; I11.0 Hypertensive heart disease with heart failure; Z79.52 Long term (current) use of systemic steroids; Z82.49 Family history of ischemic heart disease and other diseases of the circulatory system; Z68.20 Body mass index [BMI] 20.0-20.9, adult; Z79.899 Other long term (current) drug therapy; Z83.3 Family history of diabetes mellitus; Z87.891 Personal history of nicotine dependence; Z86.73 Personal history of transient ischemic attack (TIA), and cerebral infarction without residual deficits; D64.9 Anemia, unspecified
CPT/HCPCS: 36415; 36600; 71045; 71275; 76999; 80048; 80053; 80306; 81001; 82248; 82805; 83605; 83690; 83735; 83880; 84100; 84484; 85025; 85379; 85610; 85730; 87040; 93005; 94640; 94660; 94760; 96361; 96365; 96372; 96375; 96376; G0378; J0456; J0696; J1650; J1885; J1940; J2270; J2543; J2920; J3411; J3475; J7120; J7512; J7611; J7620; Q9967

== ENCOUNTER 2023-04-05 07:06 | Inpatient (IN) | payer OTHER, MEDICAID ==
[2023-04-05] MEDS ORDERED: Ipratropium Bromide 2.5 ml Neb ONE (07:16)
[2023-04-05 07:57] LABS: Actual Bicarbonate (HCO3a) 20.5 mEq/L (22-28); Analyzer IN Cardio ER; Base Excess (BEa) -4.8 mEq/L (-2.0 to +3.0); CO2 Tension 38.8 mmHg (35.0-45.0); Calcium, Ionized (arterial) 1.19 mmol/L (1.12-1.30); Carboxyhemoglobin (COHb) 0.6 gm% (0.0-3.0); Hematocrit-ABG 41 % (42.0-52.0); Hemoglobin (Hb) 13.9 g/dL (14.0-18.0); O2 Tension (PaO2), arterial 177.2 mmHg (> 80.0); Potassium - ABG Lab 4.26 mmol/L (3.70-5.30)
[2023-04-05 07:59] LABS: Puncture Site RRA
[2023-04-05 09:02] LABS: #Eosinphils 0.1 thou/uL (0.0-0.7); #Monocytes 0.4 thou/uL (0.11-0.59); #Neutrophils 12.8 thou/uL (1.40-6.50); %Basophils 0.3 % (0.0-1.0); %Eosinophils 0.6 % (0.0-10.0); %Lymphocytes 5.6 % (21.0-51.0); %Monocytes 2.8 % (0.0-10.0); %Neutrophils 90.2 % (42.0-75.0); Hemoglobin 12.9 g/dL (14.0-18.0); Mean Corpuscular HGB CONC 32.7 g/dL (32.0-36.0); Mean Corpuscular Hemoglobin 38.3 pg (27.0-31.0); Mean Corpuscular Volume 116.9 fl (78.0-98.0); Mean Platelet Volume 10.8 fL (7.4-10.4); Platelet Count 159 10x3/uL (130-400); RBC Distribution Width 11.9 % (11.5-14.5); Red Blood Cell (RBC) Count 3.37 mill/uL (4.70-6.10); White Blood Cell (WBC) Count 14.2 10x3/uL (4.8-10.8)
[2023-04-05 09:30] LABS: Anisocytosis SLIGHT = 6-15 cells HPF (0-5); Burr Cells SLIGHT = 2-5 cells HPF (0-1); CellaVision Operator ID LAB.NR; Macrocytosis MODERATE=16-30 cells HPF (0-5); Platelet Adequacy Comment Platelets Normal; Polychromasia SLIGHT = 2-3 cells HPF (0-2)
[2023-04-05 09:41] LABS: ALT (SGPT) 18 U/L (8-55); AST (SGOT) 24 U/L (5-34); Albumin 4.1 g/dL (3.4-4.8); Alkaline Phosphatase 53 U/L (40-110); Anion Gap 15 mmol/L (10-20); BUN (Urea Nitrogen) 12 mg/dL (8.4-25.7); Bilirubin, Total 0.5 mg/dL (0.2-1.2); Calc. Creatinine Clearance 0 mL/min (70-130); Calcium 9.2 mg/dL (7.8-10.44); Carbon Dioxide 19 mmol/L (23-31); Chloride 108 mmol/L (98-107); Estimated GFR 78; Globulin 3.3 g/dL (2.4-3.5); Glucose 101 mg/dL (80-115); Lipase 12 U/L (8-78); Potassium 4.4 mmol/L (3.5-5.1); Protein, Total 7.4 g/dL (5.8-8.1); Sodium 138 mmol/L (136-145)
[2023-04-05] MEDS ORDERED: Morphine 2 MG/ML VIAL ONE (10:02)
[2023-04-05] MEDS ORDERED: Sodium Chloride 0.9% 1,000 ML IV SCH (11:30)
[2023-04-05] MEDS ORDERED: Ondansetron ODT 4 MG TAB PO PRN (11:50)
[2023-04-05 12:43] VITALS: BMI 19.5
[2023-04-05] MEDS ORDERED: Magnesium 2 GM/50 ML(in water) 2 GM in Premix Bag 1 BAG IVPB SCH (13:00)
[2023-04-05] MEDS ORDERED: methylPREDNISolone Sod Succ 40 MG VIAL IVP SCH (13:00)
[2023-04-05] MEDS ORDERED: Azithromycin 500 MG in Sodium Chloride 0.9% 250 ML 250 ML IVPB SCH (13:00)
[2023-04-05] MEDS: Gabapentin 300 MG CAP PO SCH ×2 (13:32→21:42)
[2023-04-05] MEDS: HYDROcodone/Acetaminophen 10/325 mg Tablet PO PRN ×2 (13:35→21:42)
[2023-04-05] MEDS: Ipratropium/Albuterol 3 ML NEB NEB SCH ×3 (15:05→21:52)
[2023-04-05] MEDS: Mometasone 200 MCG/Formoterol 5 MCG 120 PUFF INHALER INH SCH (18:33)
[2023-04-05] MEDS: Atorvastatin Calcium 40 MG TAB PO SCH (21:42)
[2023-04-06 03:22] LABS: #Monocytes 0.5 thou/uL (0.11-0.59); #Neutrophils 9.2 thou/uL (1.40-6.50); %Lymphocytes 4.3 % (21.0-51.0); %Monocytes 4.6 % (0.0-10.0); %Neutrophils 90.7 % (42.0-75.0); Hemoglobin 11.6 g/dL (14.0-18.0); Platelet Count 143 10x3/uL (130-400); RBC Distribution Width 11.5 % (11.5-14.5); Red Blood Cell (RBC) Count 3.05 mill/uL (4.70-6.10); White Blood Cell (WBC) Count 10.1 10x3/uL (4.8-10.8)
[2023-04-06 03:33] LABS: Mean Corpuscular Volume 111.8 fl (78.0-98.0)
[2023-04-06] MEDS: Ipratropium/Albuterol 3 ML NEB NEB SCH ×5 (03:45→18:25)
[2023-04-06 03:54] LABS: Anion Gap 12 mmol/L (10-20); BUN (Urea Nitrogen) 11 mg/dL (8.4-25.7); Calc. Creatinine Clearance 74 mL/min (70-130); Calcium 8.5 mg/dL (7.8-10.44); Carbon Dioxide 21 mmol/L (23-31); Chloride 104 mmol/L (98-107); Estimated GFR 93; Glucose 143 mg/dL (80-115); Potassium 5.1 mmol/L (3.5-5.1); Sodium 132 mmol/L (136-145)
[2023-04-06] MEDS: Mometasone 200 MCG/Formoterol 5 MCG 120 PUFF INHALER INH SCH ×2 (06:13→18:27)
[2023-04-06] MEDS: predniSONE 20 MG TAB PO SCH (08:27)
[2023-04-06] MEDS: Gabapentin 300 MG CAP PO SCH ×3 (08:27→20:42)
[2023-04-06] MEDS: Lisinopril 10 MG TAB PO SCH (08:27)
[2023-04-06] MEDS: BIKTARVY 50-200-25 MG TABLET PO SCH (08:29)
[2023-04-06] MEDS ORDERED: Lidocaine 4% Patch TD PRN ×2 (08:40→09:00)
[2023-04-06] MEDS ORDERED: Azithromycin 250 MG TAB PO SCH ×3 (09:00→11:15)
[2023-04-06] MEDS ORDERED: Lidocaine 4% Patch TD SCH (09:30)
[2023-04-06] MEDS: Acetaminophen 325 MG TAB PO PRN ×2 (14:06→20:42)
[2023-04-06] MEDS ORDERED: Ipratropium/Albuterol 3 ML NEB NEB PRN (14:10)
[2023-04-06] MEDS: HYDROcodone/Acetaminophen 10/325 mg Tablet PO PRN ×2 (16:46→23:24)
[2023-04-06] MEDS: Atorvastatin Calcium 40 MG TAB PO SCH (20:42)
[2023-04-06] MEDS ORDERED: Transdermal Patch Removal TOP SCH (21:00)
[2023-04-07] MEDS: Ipratropium/Albuterol 3 ML NEB NEB SCH ×3 (01:15→15:45)
[2023-04-07] MEDS: Acetaminophen 325 MG TAB PO PRN ×2 (05:58→11:23)
[2023-04-07] MEDS: Mometasone 200 MCG/Formoterol 5 MCG 120 PUFF INHALER INH SCH (07:24)
[2023-04-07 07:59] LABS: #Eosinphils 0.1 thou/uL (0.0-0.7); #Monocytes 0.9 thou/uL (0.11-0.59); #Neutrophils 7.4 thou/uL (1.40-6.50); %Basophils 0.4 % (0.0-1.0); %Eosinophils 0.5 % (0.0-10.0); %Lymphocytes 15.2 % (21.0-51.0); %Monocytes 8.7 % (0.0-10.0); %Neutrophils 74.9 % (42.0-75.0); Hemoglobin 11.9 g/dL (14.0-18.0); Mean Corpuscular HGB CONC 31.2 g/dL (32.0-36.0); Mean Corpuscular Hemoglobin 37.3 pg (27.0-31.0); Mean Corpuscular Volume 119.4 fl (78.0-98.0); Mean Platelet Volume 11.3 fL (7.4-10.4); Platelet Count 161 10x3/uL (130-400); RBC Distribution Width 11.8 % (11.5-14.5); Red Blood Cell (RBC) Count 3.19 mill/uL (4.70-6.10); White Blood Cell (WBC) Count 9.9 10x3/uL (4.8-10.8)
[2023-04-07 08:25] LABS: Anion Gap 13 mmol/L (10-20); BUN (Urea Nitrogen) 12 mg/dL (8.4-25.7); Calc. Creatinine Clearance 63 mL/min (70-130); Calcium 8.9 mg/dL (7.8-10.44); Carbon Dioxide 22 mmol/L (23-31); Chloride 102 mmol/L (98-107); Estimated GFR 77; Glucose 72 mg/dL (80-115); Sodium 133 mmol/L (136-145)
[2023-04-07] MEDS: Gabapentin 300 MG CAP PO SCH ×2 (08:39→14:08)
[2023-04-07] MEDS: Lisinopril 10 MG TAB PO SCH (08:39)
[2023-04-07] MEDS: predniSONE 20 MG TAB PO SCH (08:40)
[2023-04-07] MEDS: BIKTARVY 50-200-25 MG TABLET PO SCH (08:40)
[2023-04-07] MEDS ORDERED: Azithromycin 250 MG TAB PO SCH (09:00)
[2023-04-07] MEDS ORDERED: Lidocaine 4% Patch TD SCH (09:00)
[2023-04-07 09:53] LABS: CellaVision Operator ID LAB.GE; Macrocytosis MODERATE=16-30 cells HPF (0-5); Platelet Adequacy Comment Platelets Normal; Polychromasia SLIGHT = 2-3 cells HPF (0-2)
[2023-04-07 13:36] VITALS: TEMP 97.9
[2023-04-07 16:24] VITALS: BP 130/83
== END 2023-04-07 16:25 | disposition home or self-care (01) | DRG 189 ==
LOC: ERS 07:06 → IMCU/EMU 11:35 → T4-A 04-06 15:53
PROVIDERS: ADMIT Family Medicine; ATTEND Family Medicine
DX: J96.01 Acute respiratory failure with hypoxia (principal); J44.1 Chronic obstructive pulmonary disease with (acute) exacerbation; I50.22 Chronic systolic (congestive) heart failure; R64 Cachexia; J96.02 Acute respiratory failure with hypercapnia; Z21 Asymptomatic human immunodeficiency virus [HIV] infection status; E78.5 Hyperlipidemia, unspecified; M54.9 Dorsalgia, unspecified; I69.398 Other sequelae of cerebral infarction; I11.0 Hypertensive heart disease with heart failure; D53.9 Nutritional anemia, unspecified; Z79.899 Other long term (current) drug therapy; Z87.891 Personal history of nicotine dependence
CPT/HCPCS: 36415; 36416; 36600; 71045; 80048; 80053; 82805; 83690; 83880; 84484; 85025; 93005; 94640; 94644; 94660; 94664; 94760; 96374; J0456; J1650; J2272; J2920; J3475; J7050; J7512; J7611; J7620

== ENCOUNTER 2023-04-08 01:09 | Inpatient (IN) | payer OTHER, MEDICAID ==
[2023-04-08] MEDS ORDERED: niCARdipine 25 MG/10 ML SDV ONE (01:18)
[2023-04-08 04:34] VITALS: BMI 19.3
[2023-04-08] MEDS ORDERED: Electrolyte Replacement Protocol 1 EACH IVPB PRN (04:47)
[2023-04-08] MEDS ORDERED: Ipratropium/Albuterol 3 ML NEB NEB PRN ×2 (05:00→10:10)
[2023-04-08] MEDS ORDERED: Azithromycin 500 MG in Sodium Chloride 0.9% 250 ML 250 ML IVPB SCH (05:00)
[2023-04-08] MEDS: HYDROcodone/Acetaminophen 10/325 mg Tablet PO PRN ×2 (05:45→15:22)
[2023-04-08 06:38] LABS: #Monocytes 0.2 thou/uL (0.11-0.59); %Basophils 0.1 % (0.0-1.0); %Lymphocytes 2.9 % (21.0-51.0); %Monocytes 1.5 % (0.0-10.0); %Neutrophils 94.9 % (42.0-75.0); Hemoglobin 11.3 g/dL (14.0-18.0); Mean Corpuscular HGB CONC 32.8 g/dL (32.0-36.0); Mean Corpuscular Hemoglobin 37.7 pg (27.0-31.0); Mean Platelet Volume 11.6 fL (7.4-10.4); Platelet Count 141 10x3/uL (130-400); RBC Distribution Width 11.8 % (11.5-14.5); White Blood Cell (WBC) Count 10.6 10x3/uL (4.8-10.8)
[2023-04-08] MEDS ORDERED: Ipratropium/Albuterol 3 ML NEB NEB SCH ×2 (07:00→10:30)
[2023-04-08 07:07] LABS: ALT (SGPT) 17 U/L (8-55); AST (SGOT) 15 U/L (5-34); Albumin 3.8 g/dL (3.4-4.8); Alkaline Phosphatase 47 U/L (40-110); Anion Gap 10 mmol/L (10-20); BUN (Urea Nitrogen) 15 mg/dL (8.4-25.7); Bilirubin, Total 0.6 mg/dL (0.2-1.2); Calc. Creatinine Clearance 64 mL/min (70-130); Calcium 8.9 mg/dL (7.8-10.44); Carbon Dioxide 26 mmol/L (23-31); Chloride 102 mmol/L (98-107); Estimated GFR 80; Globulin 2.7 g/dL (2.4-3.5); Glucose 129 mg/dL (80-115); Potassium 4.6 mmol/L (3.5-5.1); Protein, Total 6.5 g/dL (5.8-8.1); Sodium 133 mmol/L (136-145)
[2023-04-08] MEDS: Mometasone 200 MCG/Formoterol 5 MCG 120 PUFF INHALER INH SCH ×2 (07:49→18:48)
[2023-04-08] MEDS ORDERED: predniSONE 20 MG TAB PO SCH (08:00)
[2023-04-08 08:03] LABS: Troponin I 0.025 ng/mL (< 0.028)
[2023-04-08 08:39] LABS: Hemoglobin 12.3 g/dL (14.0-18.0); White Blood Cell (WBC) Count 10.9 10x3/uL (4.8-10.8)
[2023-04-08 08:40] LABS: #Monocytes 1.1 thou/uL (0.11-0.59); #Neutrophils 8.2 thou/uL (1.40-6.50); %Basophils 0.1 % (0.0-1.0); %Eosinophils 0.1 % (0.0-10.0); %Lymphocytes 14.3 % (21.0-51.0); %Neutrophils 74.9 % (42.0-75.0); Delete Auto Diff?? NO; Mean Corpuscular HGB CONC 33.2 g/dL (32.0-36.0); Mean Corpuscular Hemoglobin 37.3 pg (27.0-31.0); Mean Platelet Volume 11.4 fL (7.4-10.4); Platelet Count 181 10x3/uL (130-400); RBC Distribution Width 11.7 % (11.5-14.5)
[2023-04-08 08:59] LABS: ALT (SGPT) 19 U/L (8-55); AST (SGOT) 20 U/L (5-34); Albumin 4.1 g/dL (3.4-4.8); Alkaline Phosphatase 58 U/L (40-110); Anion Gap 16 mmol/L (10-20); BUN (Urea Nitrogen) 16 mg/dL (8.4-25.7); Bilirubin, Total 0.7 mg/dL (0.2-1.2); Calc. Creatinine Clearance 51 mL/min (70-130); Calcium 9.2 mg/dL (7.8-10.44); Carbon Dioxide 23 mmol/L (23-31); Chloride 104 mmol/L (98-107); Estimated GFR 61; Globulin 2.6 g/dL (2.4-3.5); Glucose 139 mg/dL (80-115); Potassium 5.2 mmol/L (3.5-5.1); Protein, Total 6.7 g/dL (5.8-8.1); Sodium 138 mmol/L (136-145); Troponin I 0.012 ng/mL (< 0.028)
[2023-04-08 09:00] LABS: Mean Corpuscular Volume 112.4 fl (78.0-98.0)
[2023-04-08] MEDS ORDERED: Non-Formulary Item 1 EACH (Tiotropium Bromide 4 GM Inhaler) IH SCH (09:00)
[2023-04-08] MEDS: Lisinopril 10 MG TAB PO SCH (09:19)
[2023-04-08] MEDS: Gabapentin 300 MG CAP PO SCH ×3 (09:20→20:10)
[2023-04-08] MEDS: Atorvastatin Calcium 40 MG TAB PO SCH (09:21)
[2023-04-08] MEDS: methylPREDNISolone Sod Succ 40 MG VIAL IVP SCH (20:10)
[2023-04-09 06:19] LABS: Hemoglobin 11.8 g/dL (14.0-18.0); Mean Corpuscular HGB CONC 33.1 g/dL (32.0-36.0); Mean Corpuscular Hemoglobin 37.8 pg (27.0-31.0); Mean Corpuscular Volume 114.4 fl (78.0-98.0); Platelet Count 148 10x3/uL (130-400); RBC Distribution Width 11.6 % (11.5-14.5); Red Blood Cell (RBC) Count 3.12 mill/uL (4.70-6.10); White Blood Cell (WBC) Count 12.9 10x3/uL (4.8-10.8)
[2023-04-09 06:25] LABS: Delete Auto Diff?? YES; Manual Diff?? YES
[2023-04-09 07:28] LABS: Anion Gap 14 mmol/L (10-20); BUN (Urea Nitrogen) 17 mg/dL (8.4-25.7); Calc. Creatinine Clearance 68 mL/min (70-130); Carbon Dioxide 24 mmol/L (23-31); Chloride 102 mmol/L (98-107); Potassium 4.3 mmol/L (3.5-5.1); Sodium 136 mmol/L (136-145)
[2023-04-09 07:29] LABS: Albumin 3.8 g/dL (3.4-4.8); Bilirubin, Total 0.9 mg/dL (0.2-1.2); Calcium 9.6 mg/dL (7.8-10.44); Estimated GFR 85; Glucose 116 mg/dL (80-115); Protein, Total 6.4 g/dL (5.8-8.1)
[2023-04-09 07:30] LABS: ALT (SGPT) 17 U/L (8-55); AST (SGOT) 14 U/L (5-34); Alkaline Phosphatase 48 U/L (40-110); Globulin 2.6 g/dL (2.4-3.5)
[2023-04-09 07:37] LABS: CellaVision Operator ID LAB.GE; Lymphocytes 10 % (21-51); Monocytes 3 % (0-10); Neutrophil 86 % (42-75); Platelet Adequacy Comment Platelets Normal; Polychromasia SLIGHT = 2-3 cells HPF (0-2); Reactive Lymphocytes 1 % (0-10); Total Cell Count 100
[2023-04-09] MEDS: Mometasone 200 MCG/Formoterol 5 MCG 120 PUFF INHALER INH SCH ×2 (07:51→19:08)
[2023-04-09] MEDS: Gabapentin 300 MG CAP PO SCH ×3 (08:55→19:57)
[2023-04-09] MEDS: Atorvastatin Calcium 40 MG TAB PO SCH (08:55)
[2023-04-09] MEDS: Lisinopril 10 MG TAB PO SCH (08:55)
[2023-04-09] MEDS: methylPREDNISolone Sod Succ 40 MG VIAL IVP SCH ×2 (08:55→19:57)
[2023-04-09] MEDS: BIKTARVY PO SCH (08:56)
[2023-04-09] MEDS: HYDROcodone/Acetaminophen 10/325 mg Tablet PO PRN ×2 (09:37→18:42)
[2023-04-10 06:01] LABS: Hemoglobin 12.3 g/dL (14.0-18.0); Mean Corpuscular Hemoglobin 37.7 pg (27.0-31.0); Platelet Count 160 10x3/uL (130-400); RBC Distribution Width 11.4 % (11.5-14.5); Red Blood Cell (RBC) Count 3.26 mill/uL (4.70-6.10); White Blood Cell (WBC) Count 12.2 10x3/uL (4.8-10.8)
[2023-04-10 06:36] LABS: ALT (SGPT) 19 U/L (8-55); AST (SGOT) 15 U/L (5-34); Albumin 3.7 g/dL (3.4-4.8); Alkaline Phosphatase 48 U/L (40-110); Anion Gap 13 mmol/L (10-20); BUN (Urea Nitrogen) 18 mg/dL (8.4-25.7); Bilirubin, Total 0.7 mg/dL (0.2-1.2); Calc. Creatinine Clearance 64 mL/min (70-130); Calcium 9.9 mg/dL (7.8-10.44); Carbon Dioxide 26 mmol/L (23-31); Chloride 101 mmol/L (98-107); Estimated GFR 80; Globulin 2.7 g/dL (2.4-3.5); Glucose 116 mg/dL (80-115); Potassium 4.3 mmol/L (3.5-5.1); Protein, Total 6.4 g/dL (5.8-8.1); Sodium 136 mmol/L (136-145)
[2023-04-10 06:57] LABS: Delete Auto Diff?? YES; Manual Diff?? YES
[2023-04-10] MEDS: Mometasone 200 MCG/Formoterol 5 MCG 120 PUFF INHALER INH SCH ×2 (07:33→18:40)
[2023-04-10 08:22] LABS: % Free PSA 16.7 % (.); Total PSA 1.5 ng/mL (0.0-4.0)
[2023-04-10] MEDS: Gabapentin 300 MG CAP PO SCH ×3 (08:41→20:32)
[2023-04-10] MEDS: Lisinopril 10 MG TAB PO SCH (08:41)
[2023-04-10] MEDS: BIKTARVY PO SCH (08:42)
[2023-04-10] MEDS: Atorvastatin Calcium 40 MG TAB PO SCH (08:42)
[2023-04-10] MEDS: methylPREDNISolone Sod Succ 40 MG VIAL IVP SCH (08:42)
[2023-04-10 09:10] LABS: CellaVision Operator ID LAB.GE; Large Platelets 4.9 % (0-5); Lymphocytes 7 % (21-51); Macrocytosis MODERATE=16-30 cells HPF (0-5); Monocytes 4 % (0-10); Neutrophil 87 % (42-75); Platelet Adequacy Comment Platelets Normal; Polychromasia SLIGHT = 2-3 cells HPF (0-2); Reactive Lymphocytes 1 % (0-10); Total Cell Count 102
[2023-04-10] MEDS: predniSONE 20 MG TAB PO SCH (09:28)
[2023-04-10] MEDS: Acetaminophen 325 MG TAB PO PRN (20:34)
[2023-04-11] MEDS: Acetaminophen 325 MG TAB PO PRN ×2 (05:18→11:37)
[2023-04-11 06:13] LABS: #Eosinphils 0.1 thou/uL (0.0-0.7); #Neutrophils 6.7 thou/uL (1.40-6.50); %Basophils 0.1 % (0.0-1.0); %Eosinophils 0.5 % (0.0-10.0); %Lymphocytes 26.8 % (21.0-51.0); %Monocytes 9.4 % (0.0-10.0); %Neutrophils 62.6 % (42.0-75.0); Hemoglobin 12.5 g/dL (14.0-18.0); Mean Corpuscular HGB CONC 33.5 g/dL (32.0-36.0); Mean Corpuscular Hemoglobin 37.4 pg (27.0-31.0); Mean Corpuscular Volume 111.7 fl (78.0-98.0); Platelet Count 176 10x3/uL (130-400); RBC Distribution Width 11.7 % (11.5-14.5); Red Blood Cell (RBC) Count 3.34 mill/uL (4.70-6.10); White Blood Cell (WBC) Count 10.7 10x3/uL (4.8-10.8)
[2023-04-11 06:49] LABS: ALT (SGPT) 23 U/L (8-55); AST (SGOT) 16 U/L (5-34); Albumin 3.6 g/dL (3.4-4.8); Alkaline Phosphatase 60 U/L (40-110); Anion Gap 11 mmol/L (10-20); BUN (Urea Nitrogen) 21 mg/dL (8.4-25.7); Bilirubin, Total 0.6 mg/dL (0.2-1.2); Calc. Creatinine Clearance 57 mL/min (70-130); Calcium 9.6 mg/dL (7.8-10.44); Carbon Dioxide 30 mmol/L (23-31); Chloride 99 mmol/L (98-107); Estimated GFR 68; Globulin 2.8 g/dL (2.4-3.5); Glucose 93 mg/dL (80-115); Protein, Total 6.4 g/dL (5.8-8.1); Sodium 136 mmol/L (136-145)
[2023-04-11 07:11] LABS: CellaVision Operator ID lab.abc; Large Platelets 5.9 % (0-5); Macrocytosis SLIGHT = 6-15 cells HPF (0-5); Platelet Adequacy Comment Platelets Normal; Smudge Cells 6.9 %
[2023-04-11] MEDS: Mometasone 200 MCG/Formoterol 5 MCG 120 PUFF INHALER INH SCH (07:23)
[2023-04-11] MEDS: predniSONE 20 MG TAB PO SCH (08:23)
[2023-04-11] MEDS: Atorvastatin Calcium 40 MG TAB PO SCH (08:23)
[2023-04-11] MEDS: Gabapentin 300 MG CAP PO SCH (08:23)
[2023-04-11] MEDS: Lisinopril 10 MG TAB PO SCH (08:23)
[2023-04-11] MEDS: BIKTARVY PO SCH (08:24)
[2023-04-11 11:37] VITALS: BP 117/76; TEMP 97.5
== END 2023-04-11 12:55 | disposition home or self-care (01) | DRG 189 ==
LOC: ERS 01:09 → IMCU/EMU 03:02 → T4-A 19:45
PROVIDERS: ADMIT Family Medicine; ATTEND Family Medicine
PROC: 5A09357 Assistance with Respiratory Ventilation, Less than 24 Consecutive Hours, Continuous Positive Airway Pressure (ICD-10-PCS; principal; 2023-04-08)
DX: J96.01 Acute respiratory failure with hypoxia (principal); J44.1 Chronic obstructive pulmonary disease with (acute) exacerbation; I69.354 Hemiplegia and hemiparesis following cerebral infarction affecting left non-dominant side; I50.22 Chronic systolic (congestive) heart failure; R64 Cachexia; Z68.1 Body mass index [BMI] 19.9 or less, adult; Z21 Asymptomatic human immunodeficiency virus [HIV] infection status; J96.02 Acute respiratory failure with hypercapnia; E78.5 Hyperlipidemia, unspecified; G89.29 Other chronic pain; I11.0 Hypertensive heart disease with heart failure; F10.90 Alcohol use, unspecified, uncomplicated; F17.210 Nicotine dependence, cigarettes, uncomplicated; D64.9 Anemia, unspecified; R33.9 Retention of urine, unspecified; Z79.2 Long term (current) use of antibiotics; Z79.899 Other long term (current) drug therapy
CPT/HCPCS: 36415; 71045; 80053; 83880; 84153; 84154; 84484; 85025; 87040; 93005; 94640; 94664; J0456; J1650; J2920; J7050; J7512; J7611; J7620

== ENCOUNTER 2023-05-14 14:24 | Emergency (ER) | payer OTHER ==
[~2023-05-14 14:24] MED LIST changes: -Iopamidol 370 76% 100 ML VIAL ONE; +Iopamidol-370 76% 500 ML MDV (1 ML CHARGE) ONE
[2023-05-14 15:07] LABS: Hematocrit 42.1 % (42.0-52.0); Hemoglobin 14.1 g/dL (14.0-18.0); Mean Corpuscular HGB CONC 33.5 g/dL (32.0-36.0); Mean Corpuscular Hemoglobin 37.7 pg (27.0-31.0); Mean Corpuscular Volume 112.6 fl (78.0-98.0); Mean Platelet Volume 10.7 fL (7.4-10.4); Platelet Count 219 10x3/uL (130-400); RBC Distribution Width 12.3 % (11.5-14.5); Red Blood Cell (RBC) Count 3.74 mill/uL (4.70-6.10); White Blood Cell (WBC) Count 15.2 10x3/uL (4.8-10.8)
[2023-05-14 15:09] LABS: Delete Auto Diff?? YES; Manual Diff?? YES
[2023-05-14 15:30] LABS: CellaVision Operator ID LAB.MJL; Large Platelets 2.9 % (0-5); Lymphocytes 3 % (21-51); Macrocytosis SLIGHT = 6-15 cells HPF (0-5); Monocytes 11 % (0-10); Neutrophil 85 % (42-75); Platelet Adequacy Comment Platelets Normal; Reactive Lymphocytes 1 % (0-10); Total Cell Count 102
[2023-05-14 15:35] LABS: ALT (SGPT) 15 U/L (8-55); AST (SGOT) 17 U/L (5-34); Albumin 3.6 g/dL (3.4-4.8); Alkaline Phosphatase 53 U/L (40-110); Anion Gap 13 mmol/L (10-20); BUN (Urea Nitrogen) 19 mg/dL (8.4-25.7); Bilirubin, Total 0.8 mg/dL (0.2-1.2); Calc. Creatinine Clearance 0 mL/min (70-130); Calcium 8.6 mg/dL (7.8-10.44); Carbon Dioxide 22 mmol/L (23-31); Chloride 104 mmol/L (98-107); Estimated GFR 65; Globulin 2.6 g/dL (2.4-3.5); Glucose 102 mg/dL (80-115); Potassium 4.5 mmol/L (3.5-5.1); Protein, Total 6.2 g/dL (5.8-8.1); Sodium 134 mmol/L (136-145)
[2023-05-14 15:35] LABS: Troponin I Less than 0.010 ng/mL (< 0.028)
[2023-05-14 16:47] LABS: Bacteria/HPF None Seen HPF (None Seen); Bilirubin Negative (Negative); Blood, Urine Negative (Negative); CAUTI Indications for Culture Pelvic or flank pain; Clarity Clear (Clear); Glucose, Urine (Dipstick) Normal (Negative); Ketone, Urine Negative (Negative); Leukocyte Negative Leu/uL (Negative); Nitrite Negative (Negative); Protein, Urine (Dipstick) Negative (Neg-Trace); RBC/HPF 0-3 HPF (0-3); Specific Gravity, Urine 1.017 (1.002-1.036); Squamous Epithelial 0-3 HPF (0-3); WBC/HPF 0-3 HPF (0-3)
[2023-05-14 16:50] LABS: Urine Culture Reflex No No
== END 2023-05-14 17:40 | disposition home or self-care (01) ==
LOC: ERS 14:24
DX: T67.5XXA Heat exhaustion, unspecified, initial encounter (principal); E86.0 Dehydration; B20 Human immunodeficiency virus [HIV] disease; I10 Essential (primary) hypertension; E78.5 Hyperlipidemia, unspecified; Z87.891 Personal history of nicotine dependence; Z79.899 Other long term (current) drug therapy
CPT/HCPCS: 36415; 71045; 71275; 80053; 81001; 82550; 83605; 83880; 84484; 85025; 93005; 96360; 96361

== ENCOUNTER 2023-06-16 15:32 | Outpatient (CLI) | payer OTHER | END 2023-06-16 15:33 | disposition home or self-care (01) | LOC: BICRAD 15:32 | PROVIDERS: ATTEND Student in an Organized Health Care Education/Training Program | DX: J44.1 Chronic obstructive pulmonary disease with (acute) exacerbation (principal); J43.9 Emphysema, unspecified | CPT/HCPCS: 71046 ==

== ENCOUNTER 2023-07-08 17:03 | Emergency (ER) | payer MEDICAID, OTHER ==
[2023-07-08 17:33] LABS: #Eosinphils 0.2 thou/uL (0.0-0.7); #Monocytes 0.9 thou/uL (0.11-0.59); #Neutrophils 4.4 thou/uL (1.40-6.50); %Basophils 0.5 % (0.0-1.0); %Eosinophils 2.9 % (0.0-10.0); %Lymphocytes 27.9 % (21.0-51.0); %Neutrophils 56.4 % (42.0-75.0); Hematocrit 39.6 % (42.0-52.0); Hemoglobin 13.3 g/dL (14.0-18.0); Mean Corpuscular HGB CONC 33.6 g/dL (32.0-36.0); Mean Corpuscular Hemoglobin 38.1 pg (27.0-31.0); Mean Corpuscular Volume 113.5 fl (78.0-98.0); Mean Platelet Volume 10.5 fL (7.4-10.4); Platelet Count 200 10x3/uL (130-400); RBC Distribution Width 12.4 % (11.5-14.5); Red Blood Cell (RBC) Count 3.49 mill/uL (4.70-6.10); White Blood Cell (WBC) Count 7.9 10x3/uL (4.8-10.8)
[2023-07-08] MEDS ORDERED: predniSONE 20 MG TAB ONE (17:33)
[2023-07-08 17:59] LABS: ALT (SGPT) 21 U/L (8-55); AST (SGOT) 22 U/L (5-34); Albumin 4.3 g/dL (3.4-4.8); Alkaline Phosphatase 57 U/L (40-110); Anion Gap 11 mmol/L (10-20); BUN (Urea Nitrogen) 10 mg/dL (8.4-25.7); Bilirubin, Total 0.6 mg/dL (0.2-1.2); Calc. Creatinine Clearance 0 mL/min (70-130); Calcium 9.2 mg/dL (7.8-10.44); Carbon Dioxide 24 mmol/L (23-31); Chloride 102 mmol/L (98-107); Estimated GFR 64; Globulin 2.6 g/dL (2.4-3.5); Glucose 89 mg/dL (80-115); Lipase 16 U/L (8-78); Potassium 4.2 mmol/L (3.5-5.1); Protein, Total 6.9 g/dL (5.8-8.1); Sodium 133 mmol/L (136-145)
[2023-07-08 18:27] LABS: CellaVision Operator ID LAB.KB; Macrocytosis SLIGHT = 6-15 cells HPF (0-5); Platelet Adequacy Comment Platelets Normal; Polychromasia SLIGHT = 2-3 cells HPF (0-2)
== END 2023-07-08 17:45 | disposition home or self-care (01) ==
LOC: ERS 17:03
DX: M62.830 Muscle spasm of back (principal); B20 Human immunodeficiency virus [HIV] disease; I10 Essential (primary) hypertension; E78.5 Hyperlipidemia, unspecified; J44.9 Chronic obstructive pulmonary disease, unspecified; Z87.891 Personal history of nicotine dependence
CPT/HCPCS: 36415; 80053; 83690; 85025; J7512

== ENCOUNTER 2023-08-24 10:05 | Emergency (ER) | payer OTHER ==
[2023-08-24] MEDS ORDERED: Diazepam 5 MG TAB ONE (11:22)
[2023-08-24 11:43] LABS: Hematocrit 44.6 % (42.0-52.0); Hemoglobin 14.9 g/dL (14.0-18.0); Manual Diff?? YES; Mean Corpuscular HGB CONC 33.4 g/dL (32.0-36.0); Mean Corpuscular Hemoglobin 38.2 pg (27.0-31.0); Mean Corpuscular Volume 114.4 fl (78.0-98.0); Mean Platelet Volume 11.2 fL (7.4-10.4); Platelet Count 169 10x3/uL (130-400); RBC Distribution Width 11.9 % (11.5-14.5); White Blood Cell (WBC) Count 11.1 10x3/uL (4.8-10.8)
[2023-08-24 11:48] LABS: Delete Auto Diff?? YES
[2023-08-24 12:11] LABS: ALT (SGPT) 24 U/L (8-55); AST (SGOT) 32 U/L (5-34); Albumin 4.3 g/dL (3.4-4.8); Alkaline Phosphatase 55 U/L (40-110); Anion Gap 14 mmol/L (10-20); BUN (Urea Nitrogen) 14 mg/dL (8.4-25.7); Bilirubin, Total 1.4 mg/dL (0.2-1.2); Calc. Creatinine Clearance 0 mL/min (70-130); Calcium 9.6 mg/dL (7.8-10.44); Carbon Dioxide 24 mmol/L (23-31); Chloride 103 mmol/L (98-107); Estimated GFR 69; Globulin 3.4 g/dL (2.4-3.5); Glucose 72 mg/dL (80-115); Potassium 3.9 mmol/L (3.5-5.1); Protein, Total 7.7 g/dL (5.8-8.1); Sodium 137 mmol/L (136-145)
[2023-08-24 12:25] LABS: CellaVision Operator ID LAB.GE; Eosinophils 1 % (0-10); Hypersegmented Neutrophil SLIGHT (None Seen); Lymphocytes 8 % (21-51); Monocytes 10 % (0-10); Neutrophil 77 % (42-75); Platelet Adequacy Comment Platelets Normal; Polychromasia SLIGHT = 2-3 cells HPF (0-2); Reactive Lymphocytes 4 % (0-10); Total Cell Count 100
== END 2023-08-24 14:32 | disposition home or self-care (01) ==
LOC: ERS 10:05
DX: M54.50 Low back pain, unspecified (principal); I10 Essential (primary) hypertension; E78.5 Hyperlipidemia, unspecified; B20 Human immunodeficiency virus [HIV] disease; Z87.891 Personal history of nicotine dependence; Z79.899 Other long term (current) drug therapy
CPT/HCPCS: 36415; 80053; 85025; 99284

== ENCOUNTER 2023-10-12 11:54 | Emergency (ER) | payer OTHER ==
[2023-10-12] MEDS ORDERED: Ketorolac Tromethamine 30 MG (1 mL) VIAL ONE (12:40)
[2023-10-12 12:44] LABS: #Basophils 0.1 thou/uL (0.0-0.2); #Eosinphils 0.2 thou/uL (0.0-0.7); %Basophils 0.6 % (0.0-1.0); %Eosinophils 1.7 % (0.0-10.0); %Lymphocytes 18.7 % (21.0-51.0); %Monocytes 10.8 % (0.0-10.0); Hematocrit 40.5 % (42.0-52.0); Mean Corpuscular HGB CONC 34.6 g/dL (32.0-36.0); Mean Corpuscular Hemoglobin 37.2 pg (27.0-31.0); Mean Corpuscular Volume 107.7 fl (78.0-98.0); Mean Platelet Volume 10.9 fL (7.4-10.4); Platelet Count 244 10x3/uL (130-400); RBC Distribution Width 11.1 % (11.5-14.5); Red Blood Cell (RBC) Count 3.76 mill/uL (4.70-6.10); White Blood Cell (WBC) Count 8.8 10x3/uL (4.8-10.8)
[2023-10-12 13:08] LABS: Troponin I 0.015 ng/mL (< 0.028)
[2023-10-12 13:10] LABS: ALT (SGPT) 18 U/L (8-55); AST (SGOT) 36 U/L (5-34); Alkaline Phosphatase 53 U/L (40-110); Anion Gap 17 mmol/L (10-20); BUN (Urea Nitrogen) 11 mg/dL (8.4-25.7); Bilirubin, Total 1.7 mg/dL (0.2-1.2); Calc. Creatinine Clearance 0 mL/min (70-130); Calcium 9.2 mg/dL (7.8-10.44); Carbon Dioxide 21 mmol/L (23-31); Chloride 101 mmol/L (98-107); Estimated GFR 65; Globulin 3.8 g/dL (2.4-3.5); Glucose 85 mg/dL (80-115); Lipase 12 U/L (8-78); Potassium 4.6 mmol/L (3.5-5.1); Protein, Total 7.8 g/dL (5.8-8.1); Sodium 134 mmol/L (136-145)
[2023-10-12] MEDS ORDERED: Morphine 4 MG/ML VIAL ONE (13:40)
[2023-10-12] MEDS ORDERED: Dexamethasone 10 MG/ML VIAL ONE (13:40)
== END 2023-10-12 14:19 | disposition home or self-care (01) ==
LOC: ERS 11:54
DX: M54.9 Dorsalgia, unspecified (principal); G89.29 Other chronic pain; R07.89 Other chest pain; I10 Essential (primary) hypertension; E78.5 Hyperlipidemia, unspecified; J44.9 Chronic obstructive pulmonary disease, unspecified; B20 Human immunodeficiency virus [HIV] disease; Z86.73 Personal history of transient ischemic attack (TIA), and cerebral infarction without residual deficits; Z79.899 Other long term (current) drug therapy
CPT/HCPCS: 36415; 71045; 72131; 80053; 83690; 84484; 85025; 93005; 96374; 96375; J1100; J1885; J2270

== ENCOUNTER 2023-10-23 10:04 | Outpatient (CLI) | payer OTHER | END 2023-10-23 10:05 | disposition home or self-care (01) | LOC: BICRAD 10:04 | PROVIDERS: ATTEND Nurse Practitioner Family | DX: M54.6 Pain in thoracic spine (principal) | CPT/HCPCS: 72072 ==

== ENCOUNTER 2023-10-31 04:18 | Inpatient (IN) | payer OTHER ==
[2023-10-31] MEDS ORDERED: Albuterol 2.5 MG (3 mL) NEB ONE ×2 (04:39→04:41)
[2023-10-31] MEDS ORDERED: Ipratropium Bromide 2.5 ml Neb ONE ×2 (04:39→06:25)
[2023-10-31] MEDS ORDERED: cefTRIAXone (ROCEPHIN) 2 GM VIAL ONE (04:40)
[2023-10-31] MEDS ORDERED: Sodium Chloride 0.9% 100 ML ONE (04:40)
[2023-10-31] MEDS ORDERED: Magnesium 2 GM/50 ML BAG (IN WATER) ONE (04:40)
[2023-10-31 05:31] LABS: #Basophils 0.1 thou/uL (0.0-0.2); #Eosinphils 0.4 thou/uL (0.0-0.7); #Monocytes 0.9 thou/uL (0.11-0.59); #Neutrophils 4.9 thou/uL (1.40-6.50); %Basophils 0.5 % (0.0-1.0); %Eosinophils 3.8 % (0.0-10.0); %Lymphocytes 33.6 % (21.0-51.0); %Monocytes 9.5 % (0.0-10.0); Hematocrit 41.9 % (42.0-52.0); Hemoglobin 13.9 g/dL (14.0-18.0); Mean Corpuscular HGB CONC 33.2 g/dL (32.0-36.0); Mean Corpuscular Hemoglobin 36.1 pg (27.0-31.0); Mean Corpuscular Volume 108.8 fl (78.0-98.0); Mean Platelet Volume 10.3 fL (7.4-10.4); Platelet Count 198 10x3/uL (130-400); RBC Distribution Width 11.2 % (11.5-14.5); Red Blood Cell (RBC) Count 3.85 mill/uL (4.70-6.10); White Blood Cell (WBC) Count 9.5 10x3/uL (4.8-10.8)
[2023-10-31 05:45] LABS: ALT (SGPT) 10 U/L (8-55); AST (SGOT) 19 U/L (5-34); Albumin 3.9 g/dL (3.4-4.8); Alkaline Phosphatase 64 U/L (40-110); Anion Gap 15 mmol/L (10-20); BUN (Urea Nitrogen) 9 mg/dL (8.4-25.7); Bilirubin, Total 0.8 mg/dL (0.2-1.2); Calc. Creatinine Clearance 0 mL/min (70-130); Calcium 9.3 mg/dL (7.8-10.44); Carbon Dioxide 23 mmol/L (23-31); Chloride 99 mmol/L (98-107); Estimated GFR 64; Globulin 3.7 g/dL (2.4-3.5); Glucose 100 mg/dL (80-115); Magnesium 2.7 mg/dL (1.6-2.6); Protein, Total 7.6 g/dL (5.8-8.1); Sodium 133 mmol/L (136-145)
[2023-10-31] MEDS ORDERED: Albuterol 2.5 MG (0.5 mL) NEB ONE ×2 (06:24→06:25)
[2023-10-31] MEDS ORDERED: Ipratropium/Albuterol 3 ML NEB NEB PRN (08:04)
[2023-10-31 08:32] LABS: Lactic Acid 2.2 mmol/L (0.5-2.2)
[2023-10-31 08:42] VITALS: BMI 21.2
[2023-10-31] MEDS ORDERED: Ipratropium/Albuterol 3 ML NEB ONE (09:52)
[2023-10-31] MEDS ORDERED: Cyclobenzaprine 10 MG TAB PO PRN (09:57)
[2023-10-31] MEDS: Ipratropium/Albuterol 3 ML NEB NEB SCH (10:03)
[2023-10-31] MEDS ORDERED: HYDROcodone/Acetaminophen 10/325 mg Tablet ONE (10:03)
[2023-10-31 10:18] LABS: SARS-CoV-2 NAA Rapid Test Not Detected (NotDetected)
[2023-10-31] MEDS ORDERED: Lisinopril 10 MG TAB ONE (10:28)
[2023-10-31] MEDS: Lisinopril 10 MG TAB PO SCH (10:32)
[2023-10-31] MEDS ORDERED: Ipratropium Bromide 2.5 ml Neb NEB SCH (13:00)
[2023-10-31] MEDS ORDERED: Non-Formulary Item 1 EACH (Gabapentin [Gabapentin] 600 MG Tablet) PO SCH (15:00)
[2023-10-31] MEDS: Gabapentin 300 MG CAP PO SCH (17:59)
[2023-10-31] MEDS: HYDROcodone/Acetaminophen 10/325 mg Tablet PO PRN (18:32)
[2023-11-01] MEDS: Guaifenesin DM 100-10/5 ML UDCUP PO PRN (02:29)
[2023-11-01 03:59] LABS: #Monocytes 1.1 thou/uL (0.11-0.59); #Neutrophils 12.4 thou/uL (1.40-6.50); %Basophils 0.1 % (0.0-1.0); %Lymphocytes 7.6 % (21.0-51.0); %Monocytes 7.3 % (0.0-10.0); %Neutrophils 84.4 % (42.0-75.0); Hematocrit 35.8 % (42.0-52.0); Hemoglobin 12.2 g/dL (14.0-18.0); Mean Corpuscular HGB CONC 34.1 g/dL (32.0-36.0); Mean Corpuscular Hemoglobin 36.6 pg (27.0-31.0); Mean Corpuscular Volume 107.5 fl (78.0-98.0); Mean Platelet Volume 10.3 fL (7.4-10.4); Platelet Count 238 10x3/uL (130-400); RBC Distribution Width 11.2 % (11.5-14.5); Red Blood Cell (RBC) Count 3.33 mill/uL (4.70-6.10); White Blood Cell (WBC) Count 14.7 10x3/uL (4.8-10.8)
[2023-11-01] MEDS: methylPREDNISolone Sod Succ/PF 125 MG/2 ML VIAL IVP SCH (05:50)
[2023-11-01 06:38] LABS: Anion Gap 14 mmol/L (10-20); BUN (Urea Nitrogen) 20 mg/dL (8.4-25.7); Calc. Creatinine Clearance 63 mL/min (70-130); Calcium 9.4 mg/dL (7.8-10.44); Carbon Dioxide 21 mmol/L (23-31); Chloride 99 mmol/L (98-107); Estimated GFR 74; Glucose 122 mg/dL (80-115); Potassium 4.5 mmol/L (3.5-5.1); Sodium 129 mmol/L (136-145)
[2023-11-01] MEDS ORDERED: cefTRIAXone\\ROCEPHIN 1 GM in Sodium Chloride 0.9% 100 ML IVPB SCH (08:00)
[2023-11-01] MEDS: Atorvastatin Calcium 40 MG TAB PO SCH (08:24)
[2023-11-01] MEDS: Enoxaparin 40 MG (0.4 mL) SYRINGE SC SCH (08:25)
[2023-11-01] MEDS: Azithromycin 200 MG/5 ML Oral Suspension PO SCH (08:25)
[2023-11-01] MEDS: guaiFENesin ER 600 MG TAB PO SCH (08:25)
[2023-11-01] MEDS ORDERED: [UNRECOGNIZED DRUG - OTHER] PO SCH (09:00)
[2023-11-01] MEDS ORDERED: Non-Formulary Item 1 EACH (Tiotropium Bromide 4 GM Inhaler) IH SCH (09:00)
[2023-11-01] MEDS ORDERED: [UNRECOGNIZED DRUG - OTHER] PO SCH (09:00)
[2023-11-01 16:07] LABS: Anion Gap 15 mmol/L (10-20); BUN (Urea Nitrogen) 20 mg/dL (8.4-25.7); Calc. Creatinine Clearance 55 mL/min (70-130); Calcium 9.4 mg/dL (7.8-10.44); Carbon Dioxide 22 mmol/L (23-31); Chloride 98 mmol/L (98-107); Estimated GFR 63; Glucose 147 mg/dL (80-115); Potassium 5.1 mmol/L (3.5-5.1); Sodium 130 mmol/L (136-145)
[2023-11-02 04:16] LABS: #Monocytes 1.1 thou/uL (0.11-0.59); #Neutrophils 10.8 thou/uL (1.40-6.50); %Basophils 0.1 % (0.0-1.0); %Eosinophils 0.2 % (0.0-10.0); %Lymphocytes 11.4 % (21.0-51.0); %Monocytes 8.4 % (0.0-10.0); %Neutrophils 79.5 % (42.0-75.0); Hematocrit 35.4 % (42.0-52.0); Hemoglobin 12.1 g/dL (14.0-18.0); Mean Corpuscular HGB CONC 34.2 g/dL (32.0-36.0); Mean Corpuscular Hemoglobin 37.5 pg (27.0-31.0); Mean Corpuscular Volume 109.6 fl (78.0-98.0); Mean Platelet Volume 10.3 fL (7.4-10.4); Platelet Count 226 10x3/uL (130-400); RBC Distribution Width 11.4 % (11.5-14.5); Red Blood Cell (RBC) Count 3.23 mill/uL (4.70-6.10); White Blood Cell (WBC) Count 13.6 10x3/uL (4.8-10.8)
[2023-11-02 04:32] LABS: Anion Gap 9 mmol/L (10-20); BUN (Urea Nitrogen) 18 mg/dL (8.4-25.7); Calc. Creatinine Clearance 61 mL/min (70-130); Calcium 9.1 mg/dL (7.8-10.44); Carbon Dioxide 26 mmol/L (23-31); Chloride 100 mmol/L (98-107); Estimated GFR 71; Glucose 104 mg/dL (80-115); Sodium 131 mmol/L (136-145)
[2023-11-02] MEDS: predniSONE 20 MG TAB PO SCH (08:16)
[2023-11-02 12:13] LABS: Absolute CD4 220 /uL (359-1519); Lymphocytes/Gated Cell Count 0.5 x10E3/uL (0.7-3.1); Total Lymphocyte 3 % (Not Estab.); WBC Total Count 15.5 x10E3/uL (3.4-10.8)
[2023-11-02] MEDS: Doxycycline 100 MG CAP PO SCH (13:10)
[2023-11-02 14:52] VITALS: BP 111/74; TEMP 97.6
[2023-11-02] MEDS ORDERED: Doxycycline 100 MG CAP PO SCH (21:00)
== END 2023-11-02 15:42 | disposition home or self-care (01) | DRG 189 ==
LOC: ERS 04:18 → ERHOLD 06:43 → IMCU/EMU 17:46 → T4-A 11-01 17:37
PROVIDERS: ADMIT Student in an Organized Health Care Education/Training Program; ATTEND Student in an Organized Health Care Education/Training Program
PROC: 5A09357 Assistance with Respiratory Ventilation, Less than 24 Consecutive Hours, Continuous Positive Airway Pressure (ICD-10-PCS; principal; 2023-10-31)
DX: J96.01 Acute respiratory failure with hypoxia (principal); J44.1 Chronic obstructive pulmonary disease with (acute) exacerbation; E87.1 Hypo-osmolality and hyponatremia; I10 Essential (primary) hypertension; Z21 Asymptomatic human immunodeficiency virus [HIV] infection status; Z79.899 Other long term (current) drug therapy; Z87.891 Personal history of nicotine dependence; Z79.51 Long term (current) use of inhaled steroids; M54.9 Dorsalgia, unspecified; G89.29 Other chronic pain; Z11.52 Encounter for screening for COVID-19
CPT/HCPCS: 36415; 71045; 80048; 80053; 83605; 83735; 83880; 85025; 86361; 87040; 87149; 93005; 94640; 94660; 96365; 96366; J0696; J1650; J2930; J3475; J3490; J7512; J7611; J7620

== ENCOUNTER 2023-11-16 09:20 | Outpatient (CLI) | payer OTHER | END 2023-11-16 09:21 | disposition home or self-care (01) | LOC: RAD 09:20 | PROVIDERS: ATTEND Internal Medicine Critical Care Medicine | DX: R06.00 Dyspnea, unspecified (principal) | CPT/HCPCS: 71046 ==

== ENCOUNTER 2024-02-09 15:39 | Outpatient (CLI) | payer OTHER | END 2024-02-09 15:40 | disposition home or self-care (01) | LOC: RAD 15:39 | PROVIDERS: ATTEND Internal Medicine Critical Care Medicine | DX: R06.00 Dyspnea, unspecified (principal); J44.9 Chronic obstructive pulmonary disease, unspecified | CPT/HCPCS: 71046 ==

== ENCOUNTER 2024-02-10 09:51 | Outpatient (CLI) | payer OTHER | END 2024-02-10 09:52 | disposition home or self-care (01) | LOC: SCSMRI 09:51 | PROVIDERS: ATTEND Nurse Practitioner Family | DX: M51.14 Intervertebral disc disorders with radiculopathy, thoracic region (principal) | CPT/HCPCS: 72146 ==

== ENCOUNTER 2024-02-25 02:58 | Inpatient (IN) | payer OTHER ==
[2024-02-25] MEDS ORDERED: Morphine 4 MG/ML VIAL ONE (03:37)
[2024-02-25] MEDS ORDERED: Ondansetron PF 4 MG/2 ML Vial ONE (03:37)
[2024-02-25 04:24] LABS: Red Blood Cell (RBC) Count 3.72 mill/uL (4.70-6.10)
[2024-02-25 04:35] LABS: Prothrombin Time 12.7 sec (12.0-14.7)
[2024-02-25 04:36] LABS: PTT 25.1 sec (22.9-36.1)
[2024-02-25 04:44] LABS: ALT (SGPT) 13 U/L (8-55); AST (SGOT) 18 U/L (5-34); Albumin 3.9 g/dL (3.4-4.8); Alkaline Phosphatase 55 U/L (40-110); Anion Gap 19 mmol/L (10-20); BUN (Urea Nitrogen) 18 mg/dL (8.4-25.7); Bilirubin, Total 1.1 mg/dL (0.2-1.2); Calc. Creatinine Clearance 0 mL/min (70-130); Calcium 9.3 mg/dL (7.8-10.44); Carbon Dioxide 17 mmol/L (23-31); Chloride 110 mmol/L (98-107); Estimated GFR 61; Globulin 3.1 g/dL (2.4-3.5); Glucose 108 mg/dL (80-115); Potassium 4.4 mmol/L (3.5-5.1); Sodium 142 mmol/L (136-145)
[2024-02-25 04:55] LABS: Eosinophils 7 % (0-10); Lymphocytes 9 % (21-51); Macrocytosis SLIGHT = 6-15 cells HPF (0-5); Monocytes 5 % (0-10); Neutrophil 76 % (42-75); Platelet Adequacy Comment Platelets Normal; Polychromasia SLIGHT = 2-3 cells HPF (0-2)
[2024-02-25 04:58] LABS: Hematocrit 41.7 % (42.0-52.0); Mean Corpuscular HGB CONC 33.6 g/dL (32.0-36.0); Mean Corpuscular Hemoglobin 37.6 pg (27.0-31.0); Mean Corpuscular Volume 112.1 fL (78.0-98.0); Mean Platelet Volume 11.3 fL (7.4-10.4); Platelet Count 188 10x3/uL (130-400); RBC Distribution Width 12.9 % (11.5-14.5)
[2024-02-25] MEDS ORDERED: Ondansetron PF 4 MG/2 ML Vial IVP PRN (05:59)
[2024-02-25] MEDS ORDERED: Ondansetron ODT 4 MG TAB PO PRN (05:59)
[2024-02-25] MEDS ORDERED: Acetaminophen 325 MG TAB PO PRN (05:59)
[2024-02-25] MEDS ORDERED: Morphine 2 MG/ML VIAL SLOW IVP PRN (05:59)
[2024-02-25] MEDS ORDERED: CEFAZOLIN 2 GM in Sodium Chloride 0.9% 100 ML IVPB SCH (07:45)
[2024-02-25] MEDS ORDERED: Benzonatate 100 MG CAP PO PRN (09:41)
[2024-02-25] MEDS: Morphine 4 MG/ML VIAL SLOW IVP PRN (09:54)
[2024-02-25] MEDS: Famotidine 20 MG TAB PO SCH (09:54)
[2024-02-25 10:39] VITALS: BMI 21.1
[2024-02-25] MEDS: Ipratropium Bromide 2.5 ml Neb NEB SCH (13:03)
[2024-02-25] MEDS ORDERED: Rocuronium Bromide 10 MG/ML (10ML VIAL) ONE (13:33)
[2024-02-25] MEDS: Gabapentin 300 MG CAP PO SCH (13:40)
[2024-02-25] MEDS ORDERED: fentaNYL PF 100 MCG/2 ML SYRINGE ONE (13:42)
[2024-02-25] MEDS ORDERED: Sodium Chloride 0.9% 100 ML ONE (14:24)
[2024-02-25] MEDS ORDERED: CEFAZOLIN 2 GM VIAL ONE (14:24)
[2024-02-25] MEDS ORDERED: KETAMINE 100 MG/ML (5ML VIAL) ONE (14:26)
[2024-02-25] MEDS ORDERED: PROPOFOL 20 ML ONE (14:44)
[2024-02-25] MEDS ORDERED: Dexamethasone 20 MG/5 ML VIAL ONE (14:48)
[2024-02-25] MEDS ORDERED: PHENYLEPHRINE-NS 100 MCG/ML 10 ML SYRINGE ONE (14:48)
[2024-02-25] MEDS: Potassium Chloride 20 MEQ in Lactated Ringer's 1,000 ML IV SCH (15:20)
[2024-02-25] MEDS ORDERED: Ondansetron HCl/PF 4 MG/2 ML Vial IVP PRN (15:31)
[2024-02-25] MEDS ORDERED: fentaNYL 50 mcg/mL 1 mL Vial ONE (16:12)
[2024-02-25] MEDS: HYDROcodone/Acetaminophen 10/325 mg Tablet PO PRN (17:03)
[2024-02-25] MEDS: Mometasone 200 MCG/Formoterol 5 MCG 120 PUFF INHALER INH SCH (18:32)
[2024-02-25] MEDS: Senokot S 8.6-50 MG TAB PO SCH (20:09)
[2024-02-25] MEDS: CEFAZOLIN 2 GM in Sodium Chloride 0.9% 100 ML IVPB SCH (21:28)
[2024-02-26 06:31] LABS: Anion Gap 13 mmol/L (10-20); BUN (Urea Nitrogen) 21 mg/dL (8.4-25.7); Calc. Creatinine Clearance 61 mL/min (70-130); Calcium 8.7 mg/dL (7.8-10.44); Carbon Dioxide 20 mmol/L (23-31); Chloride 107 mmol/L (98-107); Estimated GFR 67; Glucose 162 mg/dL (80-115); Potassium 4.3 mmol/L (3.5-5.1); Sodium 136 mmol/L (136-145)
[2024-02-26 08:07] LABS: #Basophils Less than 0.03 10x3/uL (0.0-0.2); #Eosinphils Less than 0.03 10x3/uL (0.0-0.7); %Basophils 0.1 % (0.0-1.0); %Lymphocytes 4.7 % (21.0-51.0); %Monocytes 5.9 % (0.0-10.0); %Neutrophils 88.8 % (42.0-75.0); Hematocrit 38.4 % (42.0-52.0); Hemoglobin 12.1 g/dL (14.0-18.0); Mean Corpuscular HGB CONC 31.5 g/dL (32.0-36.0); Mean Corpuscular Hemoglobin 37.3 pg (27.0-31.0); Mean Corpuscular Volume 118.5 fL (78.0-98.0); Mean Platelet Volume 11.8 fL (7.4-10.4); Platelet Count 146 10x3/uL (130-400); RBC Distribution Width 13.1 % (11.5-14.5); Red Blood Cell (RBC) Count 3.24 mill/uL (4.70-6.10)
[2024-02-26] MEDS: Lisinopril 10 MG TAB PO SCH (08:34)
[2024-02-26] MEDS: BIKTARVY 50/200/25 PO SCH (08:35)
[2024-02-26] MEDS: traMADol HCl 50 MG TAB PO PRN (08:35)
[2024-02-26] MEDS: Ipratropium/Albuterol 3 ML NEB NEB PRN (13:16)
[2024-02-26] MEDS: Albuterol 2.5 MG (3 mL) NEB IPPB PRN (16:28)
[2024-02-26] MEDS: Atorvastatin Calcium 40 MG TAB PO SCH (22:01)
[2024-02-27 06:36] LABS: Anion Gap 15 mmol/L (10-20); BUN (Urea Nitrogen) 21 mg/dL (8.4-25.7); Calc. Creatinine Clearance 55 mL/min (70-130); Carbon Dioxide 21 mmol/L (23-31); Chloride 104 mmol/L (98-107); Estimated GFR 59; Glucose 95 mg/dL (80-115); Potassium 4.1 mmol/L (3.5-5.1); Sodium 136 mmol/L (136-145)
[2024-02-27 07:00] LABS: #Basophils Less than 0.03 10x3/uL (0.0-0.2); %Basophils 0.1 % (0.0-1.0); %Monocytes 9.4 % (0.0-10.0); %Neutrophils 79.2 % (42.0-75.0); Hematocrit 34.3 % (42.0-52.0); Hemoglobin 11.1 g/dL (14.0-18.0); Mean Corpuscular HGB CONC 32.4 g/dL (32.0-36.0); Mean Corpuscular Hemoglobin 37.4 pg (27.0-31.0); Mean Corpuscular Volume 115.5 fL (78.0-98.0); Mean Platelet Volume 11.7 fL (7.4-10.4); Platelet Count 151 10x3/uL (130-400); RBC Distribution Width 12.9 % (11.5-14.5); Red Blood Cell (RBC) Count 2.97 mill/uL (4.70-6.10)
[2024-02-27] MEDS: Baclofen 10 MG TAB PO PRN (18:38)
[2024-02-28 09:02] LABS: Hematocrit 36.7 % (42.0-52.0); Hemoglobin 11.8 g/dL (14.0-18.0); Mean Corpuscular HGB CONC 32.2 g/dL (32.0-36.0); Mean Corpuscular Hemoglobin 37.7 pg (27.0-31.0); Mean Corpuscular Volume 117.3 fL (78.0-98.0); Mean Platelet Volume 12.7 fL (7.4-10.4); Platelet Count 104 10x3/uL (130-400); Red Blood Cell (RBC) Count 3.13 mill/uL (4.70-6.10)
[2024-02-28 09:27] LABS: Anisocytosis MARKED = >30 cells HPF (0-5); Eosinophils 7 % (0-10); Large Platelets 7.4 % (0-5); Lymphocytes 17 % (21-51); Macrocytosis MARKED = >30 cells HPF (0-5); Monocytes 8 % (0-10); Neutrophil 68 % (42-75); Platelet Adequacy Comment Platelets Decreased; Polychromasia SLIGHT = 2-3 cells HPF (0-2); RBC Morphology Within Normal Limits
[2024-02-28] MEDS: predniSONE 20 MG TAB PO SCH (14:47)
[2024-02-28] MEDS: Senokot S 8.6-50 MG TAB PO SCH (21:04)
[2024-02-29 08:07] LABS: Anion Gap 14 mmol/L (10-20); BUN (Urea Nitrogen) 17 mg/dL (8.4-25.7); Calc. Creatinine Clearance 67 mL/min (70-130); Calcium 9.5 mg/dL (7.8-10.44); Carbon Dioxide 27 mmol/L (23-31); Chloride 100 mmol/L (98-107); Estimated GFR 75; Glucose 138 mg/dL (80-115); Potassium 3.9 mmol/L (3.5-5.1); Sodium 137 mmol/L (136-145)
[2024-02-29 08:08] LABS: #Basophils Less than 0.03 10x3/uL (0.0-0.2); %Basophils 0.2 % (0.0-1.0); %Eosinophils 2.2 % (0.0-10.0); %Lymphocytes 10.9 % (21.0-51.0); %Monocytes 10.9 % (0.0-10.0); %Neutrophils 75.3 % (42.0-75.0); Hematocrit 32.3 % (42.0-52.0); Hemoglobin 10.7 g/dL (14.0-18.0); Mean Corpuscular HGB CONC 33.1 g/dL (32.0-36.0); Mean Corpuscular Hemoglobin 37.8 pg (27.0-31.0); Mean Corpuscular Volume 114.1 fL (78.0-98.0); Platelet Count 176 10x3/uL (130-400); RBC Distribution Width 12.6 % (11.5-14.5); Red Blood Cell (RBC) Count 2.83 mill/uL (4.70-6.10)
[2024-02-29 08:22] LABS: Macrocytosis SLIGHT = 6-15 cells HPF (0-5); Platelet Adequacy Comment Platelets Normal; Poikilocytosis MODERATE=16-30 cells HPF (0-5)
[2024-02-29] MEDS: Lidocaine 4% Patch TD PRN (08:47)
[2024-02-29] MEDS: predniSONE 20 MG TAB PO SCH (08:48)
[2024-02-29] MEDS: Polyethylene Glycol 3350 17 GM Packet PO SCH (08:49)
[2024-02-29] MEDS ORDERED: hydrOXYzine Pamoate 25 mg Capsule PO PRN (09:30)
[2024-02-29] MEDS: Docusate 100 MG CAP PO SCH (21:29)
[2024-02-29] MEDS: Aspirin 81 mg Enteric Coated Tablet PO SCH (21:29)
[2024-02-29] MEDS: Transdermal Patch Removal TOP SCH (21:30)
[2024-03-01 05:39] LABS: #Basophils 0.04 10x3/uL (0.0-0.2); %Basophils 0.3 % (0.0-1.0); %Eosinophils 10.5 % (0.0-10.0); %Lymphocytes 12.9 % (21.0-51.0); %Monocytes 11.9 % (0.0-10.0); %Neutrophils 63.8 % (42.0-75.0); Hematocrit 33.1 % (42.0-52.0); Hemoglobin 10.9 g/dL (14.0-18.0); Mean Corpuscular HGB CONC 32.9 g/dL (32.0-36.0); Mean Corpuscular Hemoglobin 36.7 pg (27.0-31.0); Mean Corpuscular Volume 111.4 fL (78.0-98.0); Mean Platelet Volume 11.1 fL (7.4-10.4); Platelet Count 198 10x3/uL (130-400); RBC Distribution Width 12.3 % (11.5-14.5); Red Blood Cell (RBC) Count 2.97 mill/uL (4.70-6.10)
[2024-03-01 06:06] LABS: Anion Gap 12 mmol/L (10-20); BUN (Urea Nitrogen) 16 mg/dL (8.4-25.7); Calc. Creatinine Clearance 74 mL/min (70-130); Calcium 9.5 mg/dL (7.8-10.44); Carbon Dioxide 26 mmol/L (23-31); Chloride 101 mmol/L (98-107); Estimated GFR 85; Glucose 110 mg/dL (80-115); Macrocytosis SLIGHT = 6-15 cells HPF (0-5); Platelet Adequacy Comment Platelets Normal; Polychromasia SLIGHT = 2-3 cells HPF (0-2); Potassium 4.1 mmol/L (3.5-5.1); Sodium 135 mmol/L (136-145)
[2024-03-01 15:17] VITALS: BP 112/77; TEMP 97.8
== END 2024-03-01 17:58 | DRG 522 ==
LOC: ERS 02:58 → SURG A 09:04
PROVIDERS: ADMIT Surgery; ATTEND Family Medicine
PROC: 0SRS0JA Replacement of Left Hip Joint, Femoral Surface with Synthetic Substitute, Uncemented, Open Approach (ICD-10-PCS; principal; 2024-02-25)
PROC: 3E033XZ Introduction of Vasopressor into Peripheral Vein, Percutaneous Approach (ICD-10-PCS; 2024-02-25)
DX: S72.002A Fracture of unspecified part of neck of left femur, initial encounter for closed fracture (principal); E87.21 Acute metabolic acidosis; J96.11 Chronic respiratory failure with hypoxia; I69.354 Hemiplegia and hemiparesis following cerebral infarction affecting left non-dominant side; Z21 Asymptomatic human immunodeficiency virus [HIV] infection status; E78.5 Hyperlipidemia, unspecified; J44.9 Chronic obstructive pulmonary disease, unspecified; I10 Essential (primary) hypertension; G89.29 Other chronic pain; D72.829 Elevated white blood cell count, unspecified; W18.09XA Striking against other object with subsequent fall, initial encounter; Z87.891 Personal history of nicotine dependence; Y93.89 Activity, other specified; Y92.89 Other specified places as the place of occurrence of the external cause; Z51.5 Encounter for palliative care; Z99.81 Dependence on supplemental oxygen; Z79.899 Other long term (current) drug therapy; Z79.51 Long term (current) use of inhaled steroids
CPT/HCPCS: 36415; 70450; 71045; 72170; 80048; 80053; 85025; 85610; 85730; 86850; 86900; 86901; 93005; 94640; 96374; 96375; C1713; C1776; G0390; J1100; J2270; J2405; J2704; J3010; J3480; J3490; J7120; J7512; J7611; J7620

== ENCOUNTER 2024-08-16 14:13 | Emergency (ER) | payer MEDICARE, OTHER ==
[2024-08-16] MEDS ORDERED: Acetaminophen 500 MG TAB ONE (15:35)
[2024-08-16 16:11] LABS: ALT (SGPT) 10 U/L (8-55); AST (SGOT) 23 U/L (5-34); Albumin 4.1 g/dL (3.4-4.8); Alkaline Phosphatase 65 U/L (40-110); Anion Gap 14 mmol/L (10-20); BUN (Urea Nitrogen) 9 mg/dL (8.4-25.7); Bilirubin, Total 1.6 mg/dL (0.2-1.2); Calc. Creatinine Clearance 0 mL/min (70-130); Calcium 9.2 mg/dL (7.8-10.44); Carbon Dioxide 21 mmol/L (23-31); Chloride 100 mmol/L (98-107); Estimated GFR 56; Globulin 3.5 g/dL (2.4-3.5); Glucose 101 mg/dL (80-115); Potassium 4.4 mmol/L (3.5-5.1); Protein, Total 7.6 g/dL (5.8-8.1); Sodium 131 mmol/L (136-145)
[2024-08-16 16:18] LABS: Troponin I Less than 0.010 ng/mL (< 0.028)
[2024-08-16 17:05] LABS: %Basophils 1.2 % (0.0-1.0); %Eosinophils 3.8 % (0.0-10.0); %Lymphocytes 20.4 % (21.0-51.0); %Monocytes 9.4 % (0.0-10.0); Hematocrit 41.7 % (42.0-52.0); Hemoglobin 13.9 g/dL (14.0-18.0); Mean Corpuscular HGB CONC 33.3 g/dL (32.0-36.0); Mean Corpuscular Hemoglobin 36.6 pg (27.0-31.0); Mean Corpuscular Volume 109.7 fL (78.0-98.0); Mean Platelet Volume 11.2 fL (7.4-10.4); Platelet Count 191 10x3/uL (130-400); RBC Distribution Width 11.5 % (11.5-14.5)
== END 2024-08-16 18:07 | disposition home or self-care (01) ==
LOC: ERS 14:13
DX: R07.89 Other chest pain (principal); B20 Human immunodeficiency virus [HIV] disease; I10 Essential (primary) hypertension; I63.9 Cerebral infarction, unspecified; G81.94 Hemiplegia, unspecified affecting left nondominant side; Z87.891 Personal history of nicotine dependence
CPT/HCPCS: 36415; 71045; 80053; 83880; 84484; 85025; 93005

== ENCOUNTER 2025-07-08 05:12 | Emergency (ER) | payer OTHER, MEDICAID ==
[2025-07-08] MEDS ORDERED: Ondansetron PF 4 MG/2 ML Vial ONE (05:54)
[2025-07-08 06:01] LABS: #Basophils Less than 0.03 10x3/uL (0.0-0.2); #Eosinophils Less than 0.03 10x3/uL (0.0-0.7); #Monocytes 1.16 10x3/uL (0.11-0.59); #Neutrophils 12.69 10x3/uL (1.40-6.50); %Basophils 0.1 % (0.0-1.0); %Eosinophils 0.1 % (0.0-10.0); %Lymphocytes 13.4 % (21.0-51.0); %Monocytes 7.2 % (0.0-10.0); %Neutrophils 78.7 % (42.0-75.0); Hematocrit 37.1 % (42.0-52.0); Hemoglobin 12.2 g/dL (14.0-18.0); Mean Corpuscular Hemoglobin 36.7 pg (27.0-31.0); Mean Corpuscular Volume 111.7 fL (78.0-98.0); Platelet Count 87 10x3/uL (130-400); Red Blood Cell (RBC) Count 3.32 mill/uL (4.70-6.10); White Blood Cell (WBC) Count 16.13 10x3/uL (4.8-10.8)
[2025-07-08 06:13] LABS: ALT (SGPT) 14 U/L (Less than 45); AST (SGOT) 39 U/L (11-34); Albumin 4.1 g/dL (3.1-4.5); Alkaline Phosphatase 49 U/L (40-110); Anion Gap 17 mmol/L (10-20); BUN (Urea Nitrogen) 25 mg/dL (8.4-25.7); Bilirubin, Total 0.4 mg/dL (0.3-1.2); Calc. Creatinine Clearance 0 mL/min (70-130); Calcium 9.8 mg/dL (7.8-10.44); Carbon Dioxide 23 mmol/L (23-31); Chloride 99 mmol/L (98-107); Globulin 3.4 g/dL (2.4-3.5); Glucose 107 mg/dL (83-110); Potassium 4.5 mmol/L (3.5-5.1); Sodium 134 mmol/L (136-145)
[2025-07-08 06:23] LABS: Macrocytosis SLIGHT = 6-15 cells HPF (0-5); Platelet Adequacy Comment Platelets Decreased
== END 2025-07-08 07:28 | disposition home or self-care (01) ==
LOC: ERS 05:12
DX: S22.32XA Fracture of one rib, left side, initial encounter for closed fracture (principal); E86.0 Dehydration; J44.9 Chronic obstructive pulmonary disease, unspecified; Z87.891 Personal history of nicotine dependence; W18.30XA Fall on same level, unspecified, initial encounter
CPT/HCPCS: 71045; 80053; 84484; 85025; 93005; 94760; J2270; J2405; 96374; 96375

== ENCOUNTER 2025-08-31 07:14 | Inpatient (IN) | payer OTHER ==
[2025-08-31] MEDS ORDERED: Albuterol 2.5 MG (3 mL) NEB ONE (07:27)
[2025-08-31] MEDS ORDERED: Albuterol 2.5 MG (0.5 mL) NEB ONE (07:27)
[2025-08-31 07:37] LABS: Actual Bicarbonate (HCO3v) 29.8 mEq/L (22-28); Analyzer IN Cardio ER; Base Excess 4.5 mEq/L (-2.0 to +3.0); Calcium, Ionized (venous) 1.09 mmol/L (1.16-1.32); Chloride (VBG) 100 mmol/L (98-106); Hematocrit-VBG 36 % (42.0-52.0); Hemoglobin (Hb) 12.1 g/dL (12.6-17.4); Potassium (VBG) 5.36 mmol/L (3.70-5.30); Sodium 139 mmol/L (133-146)
[2025-08-31 07:54] LABS: #Basophils 0.04 10x3/uL (0.0-0.2); #Eosinophils 0.19 10x3/uL (0.0-0.7); #Monocytes 1.06 10x3/uL (0.11-0.59); #Neutrophils 9.50 10x3/uL (1.40-6.50); %Basophils 0.3 % (0.0-1.0); %Eosinophils 1.4 % (0.0-10.0); %Lymphocytes 19.5 % (21.0-51.0); %Monocytes 7.8 % (0.0-10.0); %Neutrophils 70.4 % (42.0-75.0); Hematocrit 34.2 % (42.0-52.0); Hemoglobin 11.4 g/dL (14.0-18.0); Mean Corpuscular Hemoglobin 35.8 pg (27.0-31.0); Mean Corpuscular Volume 107.5 fL (78.0-98.0); Platelet Count 262 10x3/uL (130-400); Red Blood Cell (RBC) Count 3.18 mill/uL (4.70-6.10); White Blood Cell (WBC) Count 13.51 10x3/uL (4.8-10.8)
[2025-08-31] MEDS ORDERED: LevoFLOXacin 750 mg/D5W 150 ml Premix Bag ONE (08:07)
[2025-08-31 08:35] LABS: ALT (SGPT) Less than 7 U/L (Less than 45); AST (SGOT) 20 U/L (11-34); Albumin 3.1 g/dL (3.1-4.5); Alkaline Phosphatase 57 U/L (40-110); Anion Gap 15 mmol/L (10-20); BUN (Urea Nitrogen) 10 mg/dL (8.4-25.7); Bilirubin, Total 0.5 mg/dL (0.3-1.2); Calc. Creatinine Clearance 0 mL/min (70-130); Calcium 8.8 mg/dL (7.8-10.44); Carbon Dioxide 29 mmol/L (23-31); Chloride 103 mmol/L (98-107); Globulin 3.3 g/dL (2.4-3.5); Glucose 117 mg/dL (83-110); Lipase 10 U/L (8-78); Magnesium 2.8 mg/dL (1.6-2.6); Potassium 3.1 mmol/L (3.5-5.1); Sodium 144 mmol/L (136-145)
[2025-08-31] MEDS ORDERED: Cyclobenzaprine 10 MG TAB ONE (10:19)
[2025-08-31] MEDS ORDERED: Acetaminophen 325 MG TAB PO PRN (11:39)
[2025-08-31] MEDS ORDERED: Senokot S 8.6-50 MG TAB PO PRN (11:39)
[2025-08-31] MEDS ORDERED: Iopamidol-370 76% 500 ML MDV (1 ML CHARGE) ONE (11:52)
[2025-08-31 13:38] VITALS: BMI 18.6
[2025-08-31] MEDS: Ketorolac Tromethamine 30 MG (1 mL) VIAL IVP PRN (13:53)
[2025-08-31] MEDS: Gabapentin 300 MG CAP PO SCH (15:59)
[2025-08-31] MEDS: HYDROcodone/Acetaminophen 10/325 mg Tablet PO PRN (17:26)
[2025-08-31] MEDS: Mometasone 200 MCG/Formoterol 5 MCG 120 PUFF INHALER INH SCH (18:45)
[2025-08-31] MEDS: Cyclobenzaprine 10 MG TAB PO PRN (20:28)
[2025-08-31] MEDS: Famotidine 20 MG TAB PO SCH (20:28)
[2025-09-01 05:28] LABS: #Basophils Less than 0.03 10x3/uL (0.0-0.2); #Eosinophils Less than 0.03 10x3/uL (0.0-0.7); #Monocytes 0.83 10x3/uL (0.11-0.59); #Neutrophils 12.11 10x3/uL (1.40-6.50); %Basophils 0.1 % (0.0-1.0); %Eosinophils 0.0 % (0.0-10.0); %Lymphocytes 6.4 % (21.0-51.0); %Monocytes 5.9 % (0.0-10.0); %Neutrophils 85.6 % (42.0-75.0); Hematocrit 30.6 % (42.0-52.0); Hemoglobin 9.6 g/dL (14.0-18.0); Mean Corpuscular Hemoglobin 34.9 pg (27.0-31.0); Mean Corpuscular Volume 111.3 fL (78.0-98.0); Platelet Count 260 10x3/uL (130-400); Red Blood Cell (RBC) Count 2.75 mill/uL (4.70-6.10); White Blood Cell (WBC) Count 14.13 10x3/uL (4.8-10.8)
[2025-09-01 05:36] LABS: Anion Gap 11 mmol/L (10-20); BUN (Urea Nitrogen) 15 mg/dL (8.4-25.7); Calc. Creatinine Clearance 58 mL/min (70-130); Calcium 9.0 mg/dL (7.8-10.44); Carbon Dioxide 28 mmol/L (23-31); Chloride 100 mmol/L (98-107); Glucose 206 mg/dL (83-110); Potassium 4.1 mmol/L (3.5-5.1); Sodium 135 mmol/L (136-145)
[2025-09-01 10:38] VITALS: BMI 18.6
[2025-09-01] MEDS: LevoFLOXacin 750 mg/D5W 750 MG in Premix 1 BAG IVPB SCH (10:46)
[2025-09-01] MEDS: BIKTARVY 50-200-25 MG TABLET PO SCH (10:47)
[2025-09-01] MEDS: Enoxaparin 40 MG (0.4 mL) SYRINGE SC SCH (10:47)
[2025-09-01 16:13] VITALS: BP 132/73; TEMP 97.8
[2025-09-02 19:13] LABS: %CD4 Pos. Lymph 52.9 % (30.8-58.5); Absolute CD4 476 /uL (359-1519); Lymphocytes/Gated Cell Count 0.9 x10E3/uL (0.7-3.1); Total Lymphocyte 5 % (Not Estab.); WBC Total Count 16.3 x10E3/uL (3.4-10.8)
== END 2025-09-01 15:50 | disposition home or self-care (01) | DRG 189 ==
LOC: ERS 07:14 → T4-B 11:35
PROVIDERS: ADMIT Family Medicine; ATTEND Internal Medicine
DX: J96.01 Acute respiratory failure with hypoxia (principal); I50.22 Chronic systolic (congestive) heart failure; I69.354 Hemiplegia and hemiparesis following cerebral infarction affecting left non-dominant side; I13.0 Hypertensive heart and chronic kidney disease with heart failure and stage 1 through stage 4 chronic kidney disease, or unspecified chronic kidney disease; J44.1 Chronic obstructive pulmonary disease with (acute) exacerbation; F11.20 Opioid dependence, uncomplicated; Z21 Asymptomatic human immunodeficiency virus [HIV] infection status; E78.5 Hyperlipidemia, unspecified; N18.2 Chronic kidney disease, stage 2 (mild); G89.29 Other chronic pain; M54.9 Dorsalgia, unspecified; Z99.81 Dependence on supplemental oxygen; Z87.891 Personal history of nicotine dependence; Z79.899 Other long term (current) drug therapy
CPT/HCPCS: 36415; 71045; 71275; 80048; 80053; 82805; 83605; 83690; 83735; 83880; 84484; 85025; 86361; 87040; 87077; 87428; 93005; 94640; 94664; 96365; J1650; J1885; J1956; J2919; J7611; Q9967